=== PATIENT | female | born 1930 | race Caucasian/White ===

== ENCOUNTER → 2017-03-02 | Outpatient (CLI) | payer MEDICARE ==
[~2017-03-02] MED LIST: DICL1ADH5 TP; DICY10CA3 PO; LEVO50TA6 PO; METF500T4 PO; NYST1000 PO; OMEP20CA12 PO; TRAM50TA PO; VERA240C2 PO
--- NOTE | 2017-03-02 14:50 | DIREP ---
COMPARISON:[facility], CT, CT ABD/PELVIS W/O, 03/22/2016, 09:39 AM. INDICATIONS:RUQ AND EPIGASTRIC PAIN R10.11, R10.13 TECHNIQUE:After obtaining the patient's consent, CT images were created without and with non-ionic intravenous contrast material. Oral contrast was administered. FINDINGS: LIVER:Normal. BILIARY:Cholecystectomy clips. PANCREAS:Normal. SPLEEN:Normal. KIDNEYS:Multiple parapelvic cysts in each kidney as well as several cortical cyst. No evidence of renal/ureteral calculus or obstruction. URINARY TRACT:No renal stones. No hydronephrosis. ADRENALS:Normal. AORTA/VASCULAR:Scattered arterial calcifications. No aneurysm. RETROPERITONEUM:Normal. BOWEL/MESENTERY:There is no intestinal obstruction, free air, free fluid, or mesenteric inflammation. Multiple colonic diverticula without diverticulitis. The appendix is not visualized. No evidence of appendicitis. ABDOMINAL WALL:There is a small fat containing right inguinal hernia. BONES:Grade 2 spondylolisthesis at L5-S1. Multilevel degenerative disc and joint changes of the spine. Left proximal femur internal fixation hardware. Bilateral L5 pars defects. OTHER:Hysterectomy. CONCLUSION: 1. No acute pathology identified in the abdomen or pelvis. Previous cholecystectomy and hysterectomy. Colonic diverticulosis without diverticulitis. 2. Compared to the prior exam, again noted are bilateral parapelvic cysts with no evidence of hydronephrosis or renal/ureteral calculus. 3. Grade 2 spondylolisthesis at L5-S1 with bilateral L5 spondylolysis. 4. Please see the above discussion for details of other findings. Dictated by: Nayan Can M.D. on 03/02/2017 at 02:44 PM
== END | disposition home or self-care (01) ==
LOC: RAD 09:24
PROVIDERS: ATTEND Internal Medicine
DX: K57.30 Diverticulosis of large intestine without perforation or abscess without bleeding (principal); M43.06 Spondylolysis, lumbar region; Z90.49 Acquired absence of other specified parts of digestive tract; Z90.710 Acquired absence of both cervix and uterus
CPT/HCPCS: 74178; Q9967

== ENCOUNTER 2017-05-02 00:39 | Day surgery (SDC) | payer MEDICARE ==
[2017-04-30 13:54] VITALS: BP 155/74
[2017-04-30 15:26] LABS: BASOPHIL # 0.1 10^3/uL (0.0-0.1); BASOPHIL % 0.5 % (0.0-0.2); EOSINOPHIL # 0.5 10^3/uL (0.0-0.2); EOSINOPHIL % 5.4 % (0.0-5.0); HEMATOCRIT 38.6 % (36.0-46.0); HEMOGLOBIN 12.4 g/dL (12.0-15.0); LYMPHOCYTES # 2.4 10^3/uL (1.0-4.8); LYMPHOCYTES % 23.6 % (24.0-44.0); MEAN CELL HGB CONCENTRATION 32.1 g/dL (33-37); MEAN CORP VOLUME 83.9 fL (78-100); MEAN PLATELET VOLUME 10.4 fL (7.8-11.0); MONOCYTES % 10.1 % (5.0-12.0); NEUTROPHILS % 60.2 % (41.0-85.0); RED CELL DISTRIBUTION WIDTH 15.1 % (11.5-14.5)
[2017-04-30 15:39] LABS: CALCIUM 9.5 mg/dL (8.4-10.5); CARBON DIOXIDE 28.7 mmol/L (20.0-32)
[2017-05-02] VITALS (7 sets, daily range): BP systolic 130–165; BP diastolic 54–84
[~2017-05-02] VITALS: Ht 154.9 cm; Wt 82.1 kg
[~2017-05-02 00:39] MED LIST changes: +BUTA1CAP5 PO; +ESOM40CA PO; +MOVIPREP POWDER PACKET PO STA
[2017-05-02] MEDS ORDERED: NS 1000ML 1,000 ML ONE (05:20)
[2017-05-02] MEDS ORDERED: NS 1000ML 1,000 ML IV SCH (06:00)
[2017-05-02] MEDS ORDERED: XYLOCAINE ONE (06:28)
[2017-05-02] MEDS ORDERED: DIPRIVAN IV ONE ×2 (06:28→08:50)
[2017-05-02] MEDS ORDERED: WATER ONE (07:30)
--- NOTE | 2017-05-02 14:36 | OPH ---
PREOPERATIVE DIAGNOSIS: History of abdominal pain and need for screening. POSTOPERATIVE DIAGNOSES: 1. Gastritis. 2. Lesion in proximal stomach. 3. Diverticular disease of the colon. SURGEON: Vikas Pressley D.O. WEBSPHERE CONSULTANT: OR staff. ANESTHESIA: Total intravenous anesthesia by Willie Guadarrama CRNA. PROCEDURES PERFORMED: 1. Esophagogastroduodenoscopy with biopsy. 2. Long flexible colonoscopy to the cecum. SPECIMENS: 1. Gastric mucosa to Path. 2. Proximal gastric lesion biopsies to Path. ESTIMATED BLOOD LOSS: 3 mL. COUNTS: At the completion of the case, the counts were correct per OR staff. DESCRIPTION OF PROCEDURE: The patient is an 86-year-old female known from previous consult. Prior to the procedure, informed consent was obtained. At this time, she was taken to the operative suite and placed in supine position. After timeout was completed, she was repositioned in the left lateral recumbent position. With adequate sedation, esophagogastroduodenoscope was advanced transorally with pneumoinsufflation distally into the second portion of the duodenum. Once the duodenum was adequately visualized, the camera was slowly withdrawn with visualization of the duodenal bulb and the pylorus. Pylorus does show some gastritis, and biopsies are obtained. Retroflexion was performed. The cardia is essentially within normal limits. In the fundus, there is noted to be a lesion that is round and smooth like a lipoma; however, on attempts to biopsy it, it was noted to be fairly firm and minimally mobile like a submucosal lesion. Biopsies are obtained of the overlying mucosa and of the lesion as well. With hemostasis noted to be good, the camera is reduced. Stomach is decompressed. Scope is slowly withdrawn. Distal, mid and proximal esophagus are within normal limits. Both the cords are visualized within normal limits. Camera is removed. The procedure is discontinued. The patient remains in the OR. Timeout was previously completed. With adequate sedation, rectal exam is performed. There are no masses. There are some soft external hemorrhoids. Next, colonoscope was advanced transanally with pneumoinsufflation proximally. There is noted to be a fairly redundant and somewhat tortuous colon, but eventually, the cecum is reached. The quality of the prep is adequate. The cecum is irrigated and inspected. The camera is slowly withdrawn to facilitate visualization of the ascending colon, hepatic flexure, transverse colon, splenic flexure and descending colon. In the distal descending colon and sigmoid, there is noted to be some diverticular disease. Further distally through the sigmoid to the rectum, the visualized portion of colon and rectum shows no overt masses, polyps or AVMs. The camera is withdrawn to the level of 5 cm where it is retroflexed and reinserted. Anal verge is visualized within normal limits. Camera is reduced. Colon is decompressed. Colonoscope is removed. The patient tolerated these procedures well. There were no acute complications noted. Kurt Salcido/ TD: 05/02/2017 10:06 CC: Theodore May M.D. MTDIvette
== END 2017-05-02 09:24 | disposition home or self-care (01) | DRG 951 ==
LOC: SDC 00:39
PROVIDERS: ATTEND Surgery
DX: Z12.11 Encounter for screening for malignant neoplasm of colon (principal); K57.30 Diverticulosis of large intestine without perforation or abscess without bleeding; K58.9 Irritable bowel syndrome, unspecified; K64.4 Residual hemorrhoidal skin tags; K21.9 Gastro-esophageal reflux disease without esophagitis; K63.89 Other specified diseases of intestine; K44.9 Diaphragmatic hernia without obstruction or gangrene; K31.89 Other diseases of stomach and duodenum; K29.70 Gastritis, unspecified, without bleeding; E11.9 Type 2 diabetes mellitus without complications; E03.9 Hypothyroidism, unspecified; J45.909 Unspecified asthma, uncomplicated; E78.00 Pure hypercholesterolemia, unspecified; M19.90 Unspecified osteoarthritis, unspecified site; K76.0 Fatty (change of) liver, not elsewhere classified; E66.9 Obesity, unspecified; Z68.34 Body mass index [BMI] 34.0-34.9, adult; Z98.890 Other specified postprocedural states; Z80.3 Family history of malignant neoplasm of breast; Z90.710 Acquired absence of both cervix and uterus; Z82.49 Family history of ischemic heart disease and other diseases of the circulatory system; Z90.49 Acquired absence of other specified parts of digestive tract; Z82.0 Family history of epilepsy and other diseases of the nervous system; Z79.899 Other long term (current) drug therapy; Z88.1 Allergy status to other antibiotic agents; Z88.0 Allergy status to penicillin; Z88.2 Allergy status to sulfonamides; Z88.8 Allergy status to other drugs, medicaments and biological substances; Z85.028 Personal history of other malignant neoplasm of stomach
CPT/HCPCS: 36415; 43239; 45378; 80053; 85025; 85610; 85730; 88305; 93005; J3490 ×3; J7030; G0105

== ENCOUNTER 2018-01-09 22:51 | Emergency (ER) | payer MEDICARE ==
[~2018-01-09] VITALS: Ht 154.9 cm; Wt 78.0 kg
[~2018-01-09 22:51] MED LIST changes: +DICL1ADH15 TP; -DICL1ADH5 TP; -MOVIPREP POWDER PACKET PO STA
--- NOTE | 2018-01-09 22:58 | PCM.EKG ---
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
[2018-01-09 23:10] LABS: BASOPHIL % 0.3 % (0.0-0.2); EOSINOPHIL # 0.3 10^3/uL (0.0-0.2); EOSINOPHIL % 2.6 % (0.0-5.0); HEMOGLOBIN 11.9 g/dL (12.0-15.0); LYMPHOCYTES # 1.8 10^3/uL (1.0-4.8); LYMPHOCYTES % 17.7 % (24.0-44.0); MEAN CELL HGB 25.1 pg (26-34); MEAN CELL HGB CONCENTRATION 30.9 g/dL (33-37); MEAN CORP VOLUME 81.2 fL (78-100); MEAN PLATELET VOLUME 9.5 fL (7.8-11.0); MONOCYTES # 0.9 10^3/uL (0.3-0.8); MONOCYTES % 8.4 % (5.0-12.0); NEUTROPHIL # 7.3 10^3/uL (1.8-7.7); NEUTROPHILS % 70.7 % (41.0-85.0); RED CELL DISTRIBUTION WIDTH 16.6 % (11.5-14.5); WHITE BLOOD CELL 10.3 10^3/uL (4.5-11.0)
[2018-01-09] MEDS ORDERED: ASPIRIN ONE (23:13)
[2018-01-09] MEDS ORDERED: ASPIRIN PO STA (23:15)
[2018-01-09] MEDS ORDERED: NITROSTAT SL STA (23:16)
[2018-01-09 23:37] LABS: ALANINE AMINOTRANSFERASE(ML) 14 U/L (12-78); ALKALINE PHOSPHATASE 61 U/L (50-136); ASPARTATE AMINO TRANSFERASE 11 U/L (0-35); CALCIUM 8.9 mg/dL (8.4-10.5); CARBON DIOXIDE 27.3 mmol/L (20.0-32); GLUCOSE 124 mg/dL (70-110)
--- NOTE | 2018-01-09 23:58 | DIREP ---
PROCEDURE:CHEST 1 VIEW COMPARISON:[facility], CR, XRAY CHEST 2 VWS, 12/19/2017, 12:02 PM. INDICATIONS:chest pain FINDINGS: LUNGS/PLEURA:No significant pulmonary parenchymal abnormalities. No effusions. VASCULATURE:Normal. Unremarkable pulmonary vasculature. CARDIAC:Normal. No cardiac silhouette abnormality or cardiomegaly. MEDIASTINUM:Atherosclerotic arch BONES:Bilateral acromioclavicular osteoarthritis OTHER:Negative. CONCLUSION:No acute disease. Dictated by: Rakesh Guerrero DO on 01/09/2018 at 11:57 PM
[2018-01-10] VITALS (9 sets, daily range): BP systolic 111–153; BP diastolic 52–70
--- NOTE | 2018-01-10 00:29 | NUR ---
BACK FROM CT PATIENT BACK FROM CT, SON AT BEDSIDE. NO NEEDS VOICED BY PATIENT OR SON
--- NOTE | 2018-01-10 01:01 | DIREP ---
This report includes an Addendum and supersedes previous reports for this exam. PROCEDURE:CTA PE CHEST W/PELVIS & LEGS TECHNIQUE:Following the intravenous administration of contrast material, axial cuts were obtained through the chest. Multiplanar / 3-D reconstructions are provided. Satisfactory pulmonary arterial contrast opacification was achieved. Delayed images through the pelvis and upper legs were acquired for a CT venogram. The images were viewed at lung and soft tissue settings. . COMPARISON:None. INDICATIONS:elevated D-Dimer and Shortness of breath FINDINGS: PULMONARY ARTERIES:Patent. LUNGS:Calcified granuloma incidentally noted within the right upper lobe. No significant pulmonary parenchymal abnormalities. CARDIAC:Normal size heart and normal pulmonary vascularity. THYROID:Normal. THORACIC AORTA:Mild atherosclerotic plaque without aneurysm. MEDIASTINUM:Normal. PLEURA:No effusion. No mass. BONES:Advanced degenerative joint disease of the lower lumbar spine and bilateral shoulder joint. OTHER:Advanced lower lumbar degenerative joint disease. Limited examination of the lower extremity veins due to arterial timing of the contrast bolus. No secondary evidence of deep venous thrombosis. Right thyroid nodule CONCLUSION: 1. No visualized deep venous thrombosis or acute cardiopulmonary process 2. Right thyroid nodule incidentally noted. Recommend dedicated follow-up on a nonemergent basis. Dictated by: Rakesh Guerrero DO on 01/10/2018 at 00:51 AM ECTION technique coy [id number] ADDENDUM: Add the following to the body of the report. The pelvis is negative. The remainder of report remains the same as does the overall impression. Dictated by: Rakesh Guerrero DO on 01/23/2018 at 02:22 PM
--- NOTE | 2018-01-10 01:19 | NUR ---
REPEAT LABS EDP STATES WE WILL REPEAT CARDIACS AND KEEP PATIENT IN ED TILL MORNING
[2018-01-10] MEDS ORDERED: SUBLIMAZE ONE (01:20)
[2018-01-10] MEDS ORDERED: ULTRAM PO STA (01:24)
--- NOTE | 2018-01-10 01:24 | ER.PDOC ---
General Chief Complaint: Chest Pain-Cardiac Nature Stated Complaint: CHEST PAIN Time seen by MD: 00:01 Source: patient, family Exam Limitations: no limitations History of Present Illness Initial Comments Patient with pressure, dull pain in chest that radiates to left arm. This started at about 8:30 pm while she was at [employer]. It was getting worse at home so she comes into ED. They have a strong family history of CAD, and she has DM2. Timing/Duration: 4-6 hours Severity/Quality: moderate Radiation: arms Activities at Onset: activity/exertion (Mild) Prior CP/Workup: no Prior Cardiac Workup Nitro Today/Relief: No Nitro Taken Today Aspirin Today: 81 mg x 3 Associated Symptoms: shortness of breath (Mild) Allergies: Coded Allergies: Penicillins (Verified Allergy, Unknown, RED BUMPS, 04/30/17) Sulfa (Sulfonamide Antibiotics) (Verified Allergy, Unknown, RED BUMPS, ) acetaminophen (Verified Allergy, Unknown, 01/09/18) cephradine (Verified Allergy, Unknown, 04/30/17) fentanyl (Verified Allergy, Unknown, 04/30/17) gabapentin (Verified Allergy, Unknown, "I BREAK OUT LIKE I HAVE BLOOD UNDER THE SKIN", 04/30/17) hydrocodone (Verified Allergy, Unknown, 01/09/18) iron (Verified Allergy, Unknown, 04/30/17) lansoprazole (Verified Allergy, Unknown, 04/30/17) morphine (Verified Allergy, Unknown, 04/30/17) oxycodone (Verified Allergy, Unknown, 04/30/17) oxytetracycline (Verified Allergy, Unknown, Swelling, 04/30/17) pantoprazole (Verified Allergy, Unknown, 04/30/17) propoxyphene (Verified Allergy, Unknown, 01/09/18) pseudoephedrine (Verified Allergy, Unknown, RED BUMPS, 04/30/17) raloxifene (Verified Allergy, Unknown, 04/30/17) tramadol (Verified Allergy, Unknown, 04/30/17) Home Meds Reported Medications Esomeprazole Magnesium (NEXIUM) 40 Mg Capsule., 1 CAP PO DAILY, #30 CAP 5 Refills 04/30/17 Butalbital/Aspirin/Caffeine ([id number] CAP) 1 Each Capsule, 1 EACH PO BID Y for HEADACHE, CAPSULE 04/30/17 Dicyclomine Hcl (DICYCLOMINE HCL) 10 Mg Capsule, 1 CAP PO TID, #90 CAP 11 Refills 09/27/14 Tramadol Hcl (TRAMADOL HCL) 50 Mg Tablet, 50 MG PO Y for PAIN, TABLET 09/27/14 Nystatin (NYSTATIN) 100,000 Unit/1 Ml Oral.susp, 5 MILLILITER PO QID Y for RASH , #200 MILLILITER 09/27/14 Verapamil Hcl (VERAPAMIL ER) 240 Mg Cap24h.pel, 1 CAP PO DAILY, #30 CAP 5 Refills 09/27/14 Metformin Hcl (METFORMIN HCL) 500 Mg Tablet, 750 MG PO DAILY, #60 TAB 3 Refills 09/27/14 Levothyroxine Sodium (LEVOTHYROXINE SODIUM) 50 Mcg Tablet, 1 TAB PO DAILY, #30 TAB 5 Refills 09/27/14 Past Medical History Medical History: diabetes, hypertension, thyroid disease Surgical History: appendectomy, back, cholecystectomy, hip, hysterectomy LMP (females 10-50): hysterectomy Family History Significant Family History: heart disease Social History Smoking: non-smoker Alcohol Use: none Drug Use: none Reviewed Nursing Reviewed: Vital Signs, Abn. Noted, Nursing Assessment Constitutional: no symptoms reported EENTM: no symptoms reported Respiratory: shortness of breath Cardiovascular: chest pain Gastrointestinal: no symptoms reported Genitourinary: no symptoms reported Musculoskeletal: no symptoms reported Skin: no symptoms reported Psychiatric/Neurological: no symptoms reported Endocrine: no symptoms reported Hematologic/Lymphatic: no symptoms reported All Other Systems: Reviewed and Negative Physical Exam General Appearance: No Apparent Distress, WD/WN HEENT: PERRL/EOMI, Normal ENT Inspection, TMs Normal, Pharynx Normal Neck: Non-Tender, Full Range of Motion, Supple, Normal Inspection Respiratory: chest non-tender, lungs clear, normal breath sounds, no respiratory distress, no accessory muscle use Cardiovascular: Normal Peripheral Pulses, Regular Rate, Rhythm, No Edema, No Gallop, No JVD, No Murmur Gastrointestinal: Normal Bowel Sounds, No Organomegaly, No Pulsatile Mass, Non Tender, Soft Rectal: Normal Exam Extremities: Normal Range of Motion, Non-Tender, Normal Inspection, No Pedal Edema, No Calf Tenderness, Normal Capillary Refill 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8-11.0) Neutrophils (%) (Auto) 70.7 % (41.0-85.0) Lymphocytes (%) (Auto) 17.7 % (24.0-44.0) Monocytes (%) (Auto) 8.4 % (5.0-12.0) Neutrophils # (Auto) 7.3 10^3/uL (1.8-7.7) Lymphocytes # (Auto) 1.8 10^3/uL (1.0-4.8) Monocytes # (Auto) 0.9 10^3/uL (0.3-0.8) Absolute Immature Granulocyte (auto 0.03 10^3 u/L (0-2) Eosinophils % 2.6 % (0.0-5.0) Basophils % 0.3 % (0.0-0.2) Basophils # 0.0 10^3/uL (0.0-0.1) Eosinophil Count 0.3 10^3/uL (0.0-0.2) Prothrombin Time 9.9 SEC (9.8-11.9) Prothrombin Time INR (Non-Therap) 1.0 Activated Partial Thromboplast Time 22.5 SEC (24.67-30.72) D-Dimer 0.66 mg/L (0.19-0.49) Sodium Level 140 mmol/L (132-145) Potassium Level 4.0 mmol/L (3.6-5.2) Chloride Level 102.0 mmol/L (96-109) Carbon Dioxide Level 27.3 mmol/L (20.0-32) Anion Gap 14.7 Blood Urea Nitrogen 22 mg/dL (7-18) Creatinine 0.99 mg/dL (0.59-1.40) Estimated GFR () 64.5 (>/=60) BUN/Creatinine Ratio 22.0 Glucose Level 124 mg/dL (70-110) Calcium Level 8.9 mg/dL (8.4-10.5) Total Bilirubin 0.1 mg/dL (0.2-1.0) Aspartate Amino Transf (AST/SGOT) 11 U/L (0-35) Alanine Aminotransferase (ALT/SGPT) 14 U/L (12-78) Alkaline Phosphatase 61 U/L (50-136) Total Creatine Kinase 56 U/L (26-192) Creatine Kinase MB 0.7 ng/mL (0.5-3.6) Troponin I < 0.02 ng/mL (0.00-0.05) Pro-B-Type Natriuretic Peptide 89 pg/mL (0-450) Total Protein 7.4 g/dL (6.4-8.2) Albumin 3.4 g/dL (3.4-5.0) Globulin 4.0 Percent Immature Gran (Cell Imm) 0.30 % (0.00-0.50) Administered Medications Medications (Trade) Dose Ordered Sig/Aguilar Route PRN Reason Start Time Stop Time Status Last Admin Dose Admin Aspirin (Aspirin) 81 mg STAT STAT PO 01/09/18 23:15 01/09/18 23:16 DC 01/09/18 23:20 Nitroglycerin (Nitrostat) 0.4 mg STAT STAT SL 01/09/18 23:16 01/09/18 23:17 DC 01/09/18 23:20 Progress Progress 1:23 Pain now much improved, Now 10/24. Patient pain free, repeat Cardiac Enzymes and EKG Normal. Will discharge to home EKG/XRAY/CT/US EKG: NSR XRAY: chest (NAD) CT Comments: Normal, No PE or DVT #2 EKG: NSR Departure Time of Disposition: 06:43 Disposition: 01 HOME, SELF-CARE Impression: Primary Impression: Chest pain Condition: Stable Patient Instructions: Chest Pain (Nonspecific) Referrals: DREW SCHAFER MD (PCP) PRIMARY CARE PROVIDER Additional Instructions: Follow up with PCP for continued work up of Chest Pain. No evidence of Cardiac disease, further evaluation warranted. Duration or Time Spent with Pa: 1.5 hr Problem Qualifiers Primary Impression: Chest pain Chest pain type: other chest pain Qualified Codes: R07.89 - Other chest pain ROSALIE LANZA DO Jan 10, 2018 01:24
[2018-01-10] MEDS ORDERED: ULTRAM ONE (01:28)
--- NOTE | 2018-01-10 02:37 | NUR ---
UPDATE PATIENT RESTING WITH EYES CLOSED, EQUAL CHEST RISE AND FALL. VITALS STABLE
--- NOTE | 2018-01-10 02:52 | NUR ---
TO RESTROOM PATIENT AMBULATED TO RESTROOM
--- NOTE | 2018-01-10 04:54 | NUR ---
TO RESTROOM PATIENT AMBULATED TO RESTROOM,NO OTHER NEEDS VOICED BY PATIENT
--- NOTE | 2018-01-10 05:50 | NUR ---
LAB AND XRAY IN ROOM FOR BLOOD DRAW AND EKG
--- NOTE | 2018-01-10 05:53 | PCM.EKG ---
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
--- NOTE | 2018-01-10 05:55 | NUR ---
TO RESTROOM PATIENT AMBULATED TO RESTROOM, NO NEEDS VOICED BY PATIENT
== END 2018-01-10 06:50 | disposition home or self-care (01) ==
LOC: ER 22:51
DX: R07.89 Other chest pain (principal); S93.402A Sprain of unspecified ligament of left ankle, initial encounter; S80.212A Abrasion, left knee, initial encounter; R06.02 Shortness of breath; E07.9 Disorder of thyroid, unspecified; E11.9 Type 2 diabetes mellitus without complications; I10 Essential (primary) hypertension; Z79.82 Long term (current) use of aspirin; Z82.49 Family history of ischemic heart disease and other diseases of the circulatory system; Z88.0 Allergy status to penicillin; Z88.2 Allergy status to sulfonamides; Z88.5 Allergy status to narcotic agent; Z90.49 Acquired absence of other specified parts of digestive tract; Z90.710 Acquired absence of both cervix and uterus; Z79.84 Long term (current) use of oral hypoglycemic drugs; Z79.899 Other long term (current) drug therapy; W19.XXXA Unspecified fall, initial encounter; Y93.89 Activity, other specified; Y92.89 Other specified places as the place of occurrence of the external cause; Y99.8 Other external cause status
CPT/HCPCS: 36415; 71045; 71275; 73701; 73706; 80053; 82550; 82553; 83880; 84484; 85025; 85379; 85610; 85730; 93005; 99284; 99285; J3010; 73562-LT; 73610-LT; Q9965

== ENCOUNTER 2018-01-10 07:36 | Emergency (ER) | payer MEDICARE, OTHER ==
[~2018-01-10] VITALS: Ht 154.9 cm; Wt 78.0 kg
[2018-01-10 07:53] VITALS: BP 148/75
--- NOTE | 2018-01-10 08:25 | DIREP ---
PROCEDURE:XRAY KNEE 3 VIEWS-LT COMPARISON:None. INDICATIONS:FALL FINDINGS: BONES:Two views of the left knee. No acute fracture is seen in the distal left femur, the patella or the proximal left tibia and the fibula. No fracture of the tibial plateau is seen. The lateral view is slightly obliques, but no large joint effusion is seen in the suprapatellar bursa. No loose bodies are seen. Ossification at the site of attachment of the suprapatellar tendon. JOINTS:Normal. SOFT TISSUES:Normal. OTHER:No additional findings. CONCLUSION:No acute fracture seen in the three views of the left knee. Dictated by: Charles Stewart MD on 01/10/2018 at 08:23 AM
--- NOTE | 2018-01-10 08:26 | DIREP ---
PROCEDURE:XRAY ANKLE MIN 3VWS-LT COMPARISON:None. INDICATIONS:FALL, LEFT ANKLE PAIN FINDINGS: BONES:Three views of the left ankle. No acute fracture is seen in the medial, lateral or the posterior malleolus. No joint widening is seen. Ossification at the site of attachment of the Achilles tendon. No fracture of the calcaneus or of the base of the 5th metatarsal is seen on the lateral view. JOINTS:Normal. SOFT TISSUES:Normal. OTHER:No additional findings. CONCLUSION:Negative three views of the left ankle. Dictated by: Charles Stewart MD on 01/10/2018 at 08:25 AM
[2018-01-10] MEDS ORDERED: TRIPLE ANTIBIOTIC OINTMENT TP ONE (08:27)
--- NOTE | 2018-01-10 08:33 | ER.PDOC ---
General Chief Complaint: Extremities Stated Complaint: FALL;KNEE PAIN Time seen by MD: 07:55 Source: patient Exam Limitations: no limitations History of Present Illness Initial Comments Pt was seen today at ER for chest pain and when she was discharged, she fell landing on her knee and ankle Recent Injury: No Allergies: Coded Allergies: Penicillins (Verified Allergy, Unknown, RED BUMPS, 04/30/17) Sulfa (Sulfonamide Antibiotics) (Verified Allergy, Unknown, RED BUMPS, ) acetaminophen (Verified Allergy, Unknown, 01/09/18) cephradine (Verified Allergy, Unknown, 04/30/17) fentanyl (Verified Allergy, Unknown, 04/30/17) gabapentin (Verified Allergy, Unknown, "I BREAK OUT LIKE I HAVE BLOOD UNDER THE SKIN", 04/30/17) hydrocodone (Verified Allergy, Unknown, 01/09/18) iron (Verified Allergy, Unknown, 04/30/17) lansoprazole (Verified Allergy, Unknown, 04/30/17) morphine (Verified Allergy, Unknown, 04/30/17) oxycodone (Verified Allergy, Unknown, 04/30/17) oxytetracycline (Verified Allergy, Unknown, Swelling, 04/30/17) pantoprazole (Verified Allergy, Unknown, 04/30/17) propoxyphene (Verified Allergy, Unknown, 01/09/18) pseudoephedrine (Verified Allergy, Unknown, RED BUMPS, 04/30/17) raloxifene (Verified Allergy, Unknown, 04/30/17) tramadol (Verified Allergy, Unknown, 04/30/17) Home Meds Reported Medications Esomeprazole Magnesium (NEXIUM) 40 Mg Capsule.dr, 1 CAP PO DAILY, #30 CAP 5 Refills 04/30/17 Butalbital/Aspirin/Caffeine ([id number] CAP) 1 Each Capsule, 1 EACH PO BID Y for HEADACHE, CAPSULE 04/30/17 Dicyclomine Hcl (DICYCLOMINE HCL) 10 Mg Capsule, 1 CAP PO TID, #90 CAP 11 Refills 09/27/14 Tramadol Hcl (TRAMADOL HCL) 50 Mg Tablet, 50 MG PO Y for PAIN, TABLET 09/27/14 Nystatin (NYSTATIN) 100,000 Unit/1 Ml Oral.susp, 5 MILLILITER PO QID Y for RASH , #200 MILLILITER 09/27/14 Verapamil Hcl (VERAPAMIL ER) 240 Mg Cap24h.pel, 1 CAP PO DAILY, #30 CAP 5 Refills 09/27/14 Metformin Hcl (METFORMIN HCL) 500 Mg Tablet, 750 MG PO DAILY, #60 TAB 3 Refills 09/27/14 Levothyroxine Sodium (LEVOTHYROXINE SODIUM) 50 Mcg Tablet, 1 TAB PO DAILY, #30 TAB 5 Refills 09/27/14 Past Medical History Medical History: diabetes Surgical History: appendectomy, cholecystectomy, hip, hysterectomy LMP (females 10-50): hysterectomy Social History Smoking: non-smoker Alcohol Use: none Drug Use: none Review of Systems Constitutional: see HPI Musculoskeletal: see HPI All Other Systems: Reviewed and Negative Physical Exam General Appearance: Alert Lower Extremity: tenderness (lateral left ankle and and antrior knee with knee abrasion ) Vascular: no vascular compromise Neuro/Psych: sensation nml Skin: color nml Back/Neck: nml inspection EENT: eyes inspection nml Respiratory: no resp distress CVS: reg rate & rhythm Abdomen: non-tender Departure Time of Disposition: 08:37 Disposition: 01 HOME, SELF-CARE Impression: Primary Impression: Ankle sprain Qualified Codes: S93.402A - Sprain of unspecified ligament of left ankle, initial encounter Additional Impression: Knee abrasion Qualified Codes: S80.212A - Abrasion, left knee, initial encounter Condition: Stable Referrals: DREW SCHAFER MD (PCP) PRIMARY CARE PROVIDER Duration or Time Spent with Pa: 10 LEANNA REEVES MD Jan 10, 2018 08:33
[2018-01-10 08:39] VITALS: BP 121/61
[2018-01-10 08:40] VITALS: BP 121/61
== END 2018-01-10 08:41 | disposition home or self-care (01) ==
LOC: ER 07:36
DX: S93.402A Sprain of unspecified ligament of left ankle, initial encounter (principal); S80.212A Abrasion, left knee, initial encounter; E11.9 Type 2 diabetes mellitus without complications; Z79.82 Long term (current) use of aspirin; Z88.0 Allergy status to penicillin; Z88.2 Allergy status to sulfonamides; Z88.5 Allergy status to narcotic agent; Z90.49 Acquired absence of other specified parts of digestive tract; Z90.710 Acquired absence of both cervix and uterus; Z79.899 Other long term (current) drug therapy; Z88.8 Allergy status to other drugs, medicaments and biological substances; W19.XXXA Unspecified fall, initial encounter; Y93.89 Activity, other specified; Y92.89 Other specified places as the place of occurrence of the external cause; Y99.8 Other external cause status
CPT/HCPCS: 99284; 73562-LT; 73610-LT

== ENCOUNTER → 2018-05-03 | Outpatient (CLI) | payer MEDICARE ==
[~2018-05-03] MED LIST changes: -METF500T4 PO; +METF500T5 PO
--- NOTE | 2018-05-03 11:20 | DIREP ---
PROCEDURE:CT CHEST W/O COMPARISON:None. INDICATIONS:R07.9 CHEST PAIN x 1 year, lower rt side TECHNIQUE:Helical sections through the chest were performed from the lung apices through the diaphragms without IV contrast. Sagittal and coronal reconstructions are obtained from source images. FINDINGS: LUNGS:There are 2 noncalcified 3 mm right middle lobe pulmonary nodules, image 25 and 31, series 5. No visible pulmonary disease. PLEURA:Normal. No mass or effusion. CARDIAC:Borderline cardiomegaly. No pericardial thickening, , effusion or significant calcification. MEDIASTINUM:Normal. No mass or adenopathy. KIM:Normal. No mass or adenopathy. AORTA:Aortic atherosclerotic calcifications. CHEST WALL:Breasts are partially excluded from view. No mass or axillary adenopathy. LIMITED ABDOMEN:Cholecystectomy clips. Remainder of upper abdomen unremarkable. BONES:Thoracic spondylosis. No bony lesion or fracture. OTHER:Negative. CONCLUSION: 1. Tiny noncalcified sub 4 mm pulmonary nodules. No follow-up needed if the patient is low risk (no history of neoplasm or tobacco use), optional CT thorax recommended in 12 months if the patient is high risk (history of neoplasm or tobacco use)to assess stability of nodule(s). 2. Borderline cardiomegaly. 3. Cholecystectomy. 4. No CT abnormality seen to account for patient's lower right-sided chest pain. Dictated by: Kobe Carver M.D. on 05/03/2018 at 11:09 AM
== END | disposition home or self-care (01) ==
LOC: RAD 10:13
PROVIDERS: ATTEND Internal Medicine
DX: M47.894 Other spondylosis, thoracic region (principal); Z90.49 Acquired absence of other specified parts of digestive tract
CPT/HCPCS: 71250

== ENCOUNTER 2018-12-29 11:41 | Inpatient (IN) | payer MEDICARE ==
[~2018-12-29] VITALS: Ht 154.9 cm; Wt 73.0 kg
[2018-12-29] VITALS (9 sets, daily range): BP systolic 104–158; BP diastolic 50–85
[~2018-12-29 11:41] MED LIST changes: +METF500T17 PO; -METF500T5 PO
--- NOTE | 2018-12-29 11:45 | NUR ---
TRIAGE PT STATES CHEST PAIN STARTED WHILE SHE WAS SITTING IN PENTECOSTAL STERNAL THAT GOES TO BACK. NO N/V, DIAPHORESIS, SLIGHT SOB NOTED. BSM ON, REPORTED TO DR. JENSEN.
--- NOTE | 2018-12-29 11:55 | PCM.EKG ---
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
[2018-12-29] MEDS ORDERED: ASPIRIN ONE (11:58)
[2018-12-29] MEDS ORDERED: ASPIRIN PO STA (11:59)
[2018-12-29] MEDS ORDERED: NITROSTAT SL PRN (12:00)
--- NOTE | 2018-12-29 12:01 | ER.PDOC ---
General Chief Complaint: Chest Pain-Cardiac Nature Stated Complaint: CP,SOB Time seen by MD: 12:00 Source: patient Exam Limitations: no limitations History of Present Illness Initial Comments Chest pain Timing/Duration: 1-3 hours Severity/Quality: moderate, sharp Radiation: back Activities at Onset: rest Prior CP/Workup: No Prior Chest Pain Nitro Today/Relief: 0.4 mg x 1 Aspirin Today: 325 mg x 1, Provided By ED Associated Symptoms: shortness of breath Allergies: Coded Allergies: Penicillins (Verified Allergy, Unknown, RED BUMPS, 04/30/17) Sulfa (Sulfonamide Antibiotics) (Verified Allergy, Unknown, RED BUMPS, ) acetaminophen (Verified Allergy, Unknown, 01/09/18) cephradine (Verified Allergy, Unknown, 04/30/17) fentanyl (Verified Allergy, Unknown, 04/30/17) gabapentin (Verified Allergy, Unknown, "I BREAK OUT LIKE I HAVE BLOOD UNDER THE SKIN", 04/30/17) hydrocodone (Verified Allergy, Unknown, 01/09/18) iron (Verified Allergy, Unknown, 04/30/17) lansoprazole (Verified Allergy, Unknown, 04/30/17) morphine (Verified Allergy, Unknown, 04/30/17) oxycodone (Verified Allergy, Unknown, 04/30/17) oxytetracycline (Verified Allergy, Unknown, Swelling, 04/30/17) pantoprazole (Verified Allergy, Unknown, 04/30/17) propoxyphene (Verified Allergy, Unknown, 01/09/18) pseudoephedrine (Verified Allergy, Unknown, RED BUMPS, 04/30/17) raloxifene (Verified Allergy, Unknown, 04/30/17) tramadol (Verified Allergy, Unknown, 04/30/17) Home Meds Reported Medications Esomeprazole Magnesium (NEXIUM) 40 Mg Capsule.dr, 1 CAP PO DAILY, #30 CAP 5 Refills 04/30/17 Butalbital/Aspirin/Caffeine ([id number] CAP) 1 Each Capsule, 1 EACH PO BID PRN for HEADACHE, CAPSULE 04/30/17 Dicyclomine Hcl (DICYCLOMINE HCL) 10 Mg Capsule, 1 CAP PO TID, #90 CAP 11 Refills 09/27/14 Tramadol Hcl (TRAMADOL HCL) 50 Mg Tablet, 50 MG PO PRN for PAIN, TABLET 09/27/14 Nystatin (NYSTATIN) 100,000 Unit/1 Ml Oral.susp, 5 MILLILITER PO QID PRN for RASH, #200 MILLILITER 09/27/14 Verapamil Hcl (VERAPAMIL ER) 240 Mg Cap24h.pel, 1 CAP PO DAILY, #30 CAP 5 Refills 09/27/14 Metformin Hcl (METFORMIN HCL) 500 Mg Tablet, 750 MG PO DAILY, #60 TAB 3 Refills 09/27/14 Levothyroxine Sodium (LEVOTHYROXINE SODIUM) 50 Mcg Tablet, 1 TAB PO DAILY, #30 TAB 5 Refills 09/27/14 Past Medical History Medical History: asthma, cardiac problems, diabetes, GERD, hypertension, thyroid disease Surgical History: appendectomy, hysterectomy LMP (females 10-50): hysterectomy Social History Smoking: non-smoker Alcohol Use: none Drug Use: none Constitutional: no symptoms reported EENTM: no symptoms reported Respiratory: see HPI Cardiovascular: see HPI Gastrointestinal: no symptoms reported All Other Systems: Reviewed and Negative Physical Exam General Appearance: No Apparent Distress, WD/WN Neck: Non-Tender, Full Range of Motion, Supple, Normal Inspection Respiratory: chest non-tender, lungs clear, normal breath sounds, no respiratory distress, no accessory muscle use Cardiovascular: Normal Peripheral Pulses, Regular Rate, Rhythm, No Edema, No Gallop, No JVD, No Murmur Gastrointestinal: Normal Bowel Sounds, No Organomegaly, No Pulsatile Mass, Non Tender, Soft Extremities: Normal Range of Motion, Non-Tender, Normal Inspection, No Pedal Edema, No Calf Tenderness, Normal Capillary Refill 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 (12/29/18 11:48) D-Dimer (12/29/18 11:48) Xr Chest 1v (12/29/18 11:48) Ekg-Routine (12/29/18 11:48) Aspirin (Aspirin) (12/29/18 11:58) Aspirin (Aspirin) (12/29/18 11:59) Nitroglycerin (Nitrostat) (12/29/18 12:00) Vital Signs Date Time Temp Pulse Resp B/P (MAP) Pulse Ox O2 Delivery O2 Flow Rate FiO2 12/29/18 11:52 98.1 70 24 145/85 (105) 97 Room Air 98.1 12/29/18 11:45 98.1 24 97 Room Air 98.[address] Sutheralnd does not want me to give Lovenox at this time. He will evaluate patient and decide. EKG/XRAY/CT/US EKG Comments: Normal XRAY: chest (No active ) Course Duration or Total Time Spent w: 10 Vitals & review Data Vital Sign - Last 24 Hours 12/29/18 12/29/18 11:45 11:52 Temp 98.1 98.1 98.1 98.1 Pulse 70 Resp 24 24 B/P (MAP) 145/85 (105) Pulse Ox 97 97 O2 Delivery Room Air Room Air Sepsis Infection Criteria Pres: None O2 Sat by Pulse Oximetry: 97 Departure Time of Disposition: 12:38 Disposition: 01 HOME, SELF-CARE Impression: Primary Impression: Chest pain Condition: Stable Referrals: DREW SCHAFER MD (PCP) PRIMARY CARE PROVIDER Comments Admitted to Dr. Sutherland Duration or Time Spent with Pa: 60 mins Problem Qualifiers Primary Impression: Chest pain Chest pain type: unspecified Qualified Codes: R07.9 - Chest pain, unspecified MALINDA JENSEN MD Dec 29, 2018 12:01
[2018-12-29 12:02] LABS: BASOPHIL % 0.5 % (0.0-0.2); EOSINOPHIL # 0.5 10^3/uL (0.0-0.2); EOSINOPHIL % 6.2 % (0.0-5.0); HEMOGLOBIN 13.5 g/dL (12.0-15.0); LYMPHOCYTES # 1.6 10^3/uL (1.0-4.8); LYMPHOCYTES % 18.9 % (24.0-44.0); MEAN CELL HGB 26.7 pg (26-34); MEAN CELL HGB CONCENTRATION 32.4 g/dL (33-37); MEAN CORP VOLUME 82.6 fL (78-100); MONOCYTES # 0.7 10^3/uL (0.3-0.8); MONOCYTES % 8.7 % (5.0-12.0); NEUTROPHIL # 5.3 10^3/uL (1.8-7.7); NEUTROPHILS % 65.3 % (41.0-85.0); RED CELL DISTRIBUTION WIDTH 17.2 % (11.5-14.5); WHITE BLOOD CELL 8.2 10^3/uL (4.5-11.0)
--- NOTE | 2018-12-29 12:16 | DIREP ---
PROCEDURE:CHEST 1 VIEW COMPARISON:[facility], CR, XRAY CHEST SINGLE VW, 01/09/2018, 11:06 PM. INDICATIONS:Chest pain and SOB FINDINGS: LUNGS/PLEURA:No significant pulmonary parenchymal abnormalities. No effusions. Lungs are well-expanded and clear. No pneumonia, heart failure or effusions are seen. No pneumothorax, pneumomediastinum, aortic aneurysm or mediastinal widening is seen. VASCULATURE:Normal. Unremarkable pulmonary vasculature. CARDIAC:Normal. No cardiac silhouette abnormality or cardiomegaly. Aorta is tortuous. EKG leads identified. MEDIASTINUM:Normal. No visible mass or adenopathy. BONES:Normal. No fracture or visible bony lesion. OTHER:Negative. CONCLUSION:No active disease. Mildly tortuous aorta. Dictated by: Charles Stewart MD on 12/29/2018 at 12:14 PM
[2018-12-29 12:25] LABS: ALANINE AMINOTRANSFERASE(ML) 23 U/L (12-78); ALKALINE PHOSPHATASE 68 U/L (50-136); ASPARTATE AMINO TRANSFERASE 19 U/L (0-35); CARBON DIOXIDE 27.6 mmol/L (20.0-32); GLUCOSE 106 mg/dL (70-110)
--- NOTE | 2018-12-29 12:28 | NUR ---
NIMCOIMER CRITICAL RESULT OF 0.61 CALLED IN FROM LAB. REPORTED TO DR. JENSEN.
--- NOTE | 2018-12-29 12:36 | NUR ---
HOSPITALIST DR JENSEN ON PHONE WITH DR. MAYORGA.
[2018-12-29] MEDS ORDERED: NS 1000ML 1,000 ML IV STA (12:42)
[2018-12-29] MEDS ORDERED: TORADOL IV STA (12:46)
[2018-12-29] MEDS ORDERED: NS 1000ML 1,000 ML ONE (12:50)
[2018-12-29] MEDS ORDERED: TORADOL ONE (12:51)
--- NOTE | 2018-12-29 13:15 | NUR ---
ARRIVAL PATIENT ARRIVED ON MED-SURG UNIT AT THIS TIME. RECEIVED REPORT, ASSUMED CARE FOR PATIENT AT THIS TIME.
[2018-12-29] MEDS ORDERED: DEXTROSE 50%-WATER SYRINGE IV PRN (17:00)
[2018-12-29] MEDS: HUMULIN R SQ SCH ×2 (17:09→21:00)
--- NOTE | 2018-12-29 17:54 | PCM.HP ---
HISTORY & PHYSICAL HISTORY & PHYSICAL DATE OF ADMISSION: CHIEF COMPLAINT: 88 yo female with DM, HTN, and strong FHx CAD,, comes in with 3 days of intermittent substernal chest pain radiating to back. EKG and Enzymes (-) thus far. Admit for R/O ACS and have evaluation by Dr. Stone. H&P #[id number] HISTORY OF PRESENT ILLNESS: ALLERGIES: CURRENT MEDICATIONS: PAST MEDICAL HISTORY: SOCIAL HISTORY: FAMILY HISTORY: REVIEW OF SYSTEMS: PHYSICAL EXAMINATION: GENERAL: VITAL SIGNS: HEENT: NECK: LUNGS: HEART: ABDOMEN: EXTREMITIES: NEUROLOGIC: LABORATORY DATA: IMPRESSION: CARE PLAN: ENMA MAYORGA MD Dec 29, 2018 17:54
--- NOTE | 2018-12-29 19:24 | HPH ---
ADMIT DATE: 12/29/2018 CHIEF COMPLAINT: Chest pain. HISTORY OF PRESENT ILLNESS: This is an 88-year-old female with a history of hypertension and diabetes who presents to the Emergency Department earlier this afternoon with complaints of chest pain. She states her pain started 4 days ago when it developed suddenly in the middle of her chest and radiated to her mid back. The pain at that time only lasted for several minutes and then abated. Her pain recurred several more times that afternoon and early on morning but then rescinded. She was feeling better over the last 24-36 hours until she was at [employer] today when she was getting ready to leave [employer] and developed a sudden onset of pain near the bottom of her sternum. She described it as a squeezing pain and there was some radiation to the back. This pain lasted approximately 30-45 minutes and she rated it as 7/10. This is what necessitated her visit to the Emergency Department. She did not have any associated nausea, vomiting or shortness of breath. There was no other radiation of her chest pain. She has never had an episode like this in the past. PAST MEDICAL HISTORY: 1. Chronic headache. 2. Hypertension. 3. Diabetes mellitus type 2. 4. Hypothyroidism. MEDICATIONS: See admit medication reconciliation form. ALLERGIES: MULTIPLE -- SEE LIST. PAST SURGICAL HISTORY: 1. Appendectomy. 2. MONIQUE-BSO. 3. History of left femur surgery. 4. Spinal surgery. 5. Cholecystectomy. SOCIAL HISTORY: Alcohol, tobacco: None. The patient lives in [place] with her son. She is retired. FAMILY HISTORY: The patient's mother in her 50s of heart disease. She had multiple distant family members with heart disease as well. REVIEW OF SYSTEMS: GENERAL: No recent weakness, fatigue, or malaise. Denies fever. CARDIAC: Positive for chest pain as above. No palpitations, orthopnea, or PND. RESPIRATORY: Denies shortness of breath, cough or congestion. No history of hemoptysis. GASTROINTESTINAL: No nausea, vomiting, diarrhea, or constipation. No history of hepatitis. GENITOURINARY: Denies dysuria, frequency, hematuria, or nocturia. HEMATOLOGIC: No easy bleeding or bruising. ENDOCRINE: No recent weight loss or weight gain. No temperature intolerance. NEUROLOGIC: Denies paresthesias or dizziness but positive headache as above. MUSCULOSKELETAL: No complaints of pain or weakness in bones, muscles or joints. PSYCHIATRIC: Denies depression or anxiety. OBJECTIVE: VITAL SIGNS: Temperature 98.1, pulse 70, respirations 24, blood pressure 145/85, and pulse ox 97% on room air. GENERAL: This is a well-appearing female, in no acute distress. HEENT: Atraumatic, normocephalic. Sclerae are clear and anicteric. Oral mucosa is moist. NECK: Soft, supple, normal range of motion. No tenderness, bruits, goiter, mass or adenopathy. There is no JVD. LUNGS: Clear to auscultation bilaterally. HEART: Regular rate and rhythm without murmurs, S3 or S4. ABDOMEN: Soft, nontender, nondistended. Positive bowel sounds. No masses felt. EXTREMITIES: Warm and well perfused without evidence of edema, cyanosis or clubbing. NEUROLOGIC: Cranial nerves 2 through 12 are grossly intact and symmetric. SKIN: Intact. LABORATORY DATA: WBC 8.2, hemoglobin 13.5, hematocrit 41.7, and platelets 271. Sodium 139, potassium 4.1, BUN 19, creatinine 0.91, glucose 106. AST 19, ALT 23, alkaline phosphatase 68. Troponin I less than 0.02, proBNP 76. Total protein 7.4, albumin 3.5. Chest x-ray: "No acute cardiopulmonary disease." EKG: No signs of acute coronary syndrome. ASSESSMENT: 1. Substernal chest pain. 2. Diabetes mellitus type 2. 3. Hypertension. 4. Headache. 5. Family history of heart disease. 6. Hypothyroidism. PLAN: 1. This patient will be admitted to [facility] for further evaluation and management. 2. Follow cardiac enzymes every 6 hours and repeat EKG in a.m. 3. Start aspirin and resume home medications. 4. Consult Dr. Stone for further evaluation and will leave n.p.o. for the morning in case further diagnostic evaluation needs to be performed. 5. Keep the patient on telemetry. 6. Follow closely and make changes as clinically indicated. Shamar Sutherland MD DR: JESSICA/wilfrido JOB# [id number]
[2018-12-29] MEDS: PEPCID PO SCH (20:37)
[2018-12-29] MEDS: ASPIRIN PO PRN (20:38)
[2018-12-30] MEDS: ASPIRIN PO PRN ×2 (02:46→14:19)
[2018-12-30 05:35] VITALS: BP 103/44
[2018-12-30 05:37] LABS: HEMOGLOBIN 12.6 g/dL (12.0-15.0); MEAN CELL HGB 26.9 pg (26-34); MEAN CELL HGB CONCENTRATION 32.2 g/dL (33-37); MEAN CORP VOLUME 83.4 fL (78-100); MEAN PLATELET VOLUME 10.5 fL (7.8-11.0); WHITE BLOOD CELL 7.7 10^3/uL (4.5-11.0)
[2018-12-30 06:10] LABS: CALCIUM 8.9 mg/dL (8.4-10.5)
--- NOTE | 2018-12-30 07:11 | PCM.EKG ---
[facility] Test Date: 2018-12-30 Test Time: 07:08:47 Pat Name: ELIAS PEÑALOZA Department: Room: 332 A Gender: F Manual Winder: THERESA : [id number] Requested By: ENMA MAYORGA Order Number: [id number] Reading MD: Daryl Benedict Measurements Intervals [place] Rate: 81 P: 57 [place]: 180 QRS: 28 QRSD: 82 T: 44 QT: 394 QTc: 457 Interpretive Statements Normal sinus rhythm Normal ECG Compared to ECG 12/29/2018 11:52:35 No significant changes Electronically Signed On 12-30-2018 13:16:10 CDT by Daryl Benedict Please click the below link to view image of tracing.
[2018-12-30] MEDS: HUMULIN R SQ SCH ×2 (07:30→11:30)
[2018-12-30 07:54] VITALS: BP 108/57
[2018-12-30] MEDS ORDERED: ASPIRIN PO SCH (09:00)
[2018-12-30] MEDS ORDERED: NS 1000ML 1,000 ML ONE ×2 (09:35→11:20)
[2018-12-30] MEDS ORDERED: SUBLIMAZE ONE (09:35)
[2018-12-30] MEDS ORDERED: VERSED ONE (09:35)
[2018-12-30] MEDS ORDERED: HEPARIN ONE (09:35)
[2018-12-30] MEDS ORDERED: XYLOCAINE ONE (09:36)
[2018-12-30] MEDS: PEPCID PO SCH (10:54)
--- NOTE | 2018-12-30 11:10 | PRM.PN ---
Subjective Subjective Date: Dec 30, 2018 Time: 11:09 Subjective Feeling better overall. No complaints of chest pain overnight. Breathing is good. Master PO without problems. Patient History: Alzheimer's disease 32 MOTHER, , Age:60 years and older G8 SISTER Congestive heart failure 33 FATHER, , Age:57 FH: Alzheimers disease FH: breast cancer G8 SISTER G8 SISTER G8 SISTER (SURGICAL COMPLICATIONS), , Age:60 years and older FH: heart attack 33 FATHER, , Age:57 No known health problems 19 CHILD No Family History of: Asthma Cerebrovascular disorder Chronic obstructive pulmonary disease Diabetes insipidus Diabetes mellitus Hypertension Parkinson's disease VTE VTE Risk Total Score: 3 VTE Risk Score VTE Risk: Score 0-1 = Low Risk (Aggressive mobilization; early ambulation; no VTE prophylaxis required) Score 2: Moderate Risk (Intermittent/Pneumatic Compression Device OR Lovenox/Heparin/Coumadin) Score 3-4: High Risk (Intermittent/Pneumatic Compression Device AND Lovenox/Heparin/Coumadin) Score > or =5: Highest Risk (Intermittent/Pneumatic Compression Device AND Lovenox/Heparin/Coumadin) Review of Systems Constitutional: No: Fever, Chills, Sweats, Weakness, Malaise, Other Respiratory: No: Cough, Dry, Shortness of breath, SOB with excertion, Wheezing , Hemoptysis, Pleuritic Pain, Sputum, Wheezing, Other Cardiovascular: No: Chest Pain, Palpitations, Orthopnea, Paroxysmal Noc. Dyspnea, Edema, Lt Headedness, Other Gastrointestinal: No: Nausea, Vomiting, Abdominal Pain, Diarrhea, Constipation , Melena, Hematochezia, Other Genitourinary: No Dysuria, No Frequency, No Incontinence, No Hematuria, No Retention, No Other Musculoskeletal: No: other, neck pain, shoulder pain, arm pain, back pain, hand pain, leg pain, foot pain Neurological: No: Weakness, Numbness, Incoordination, Change in speech, Confusion, Seizures, Other Allergies: Coded Allergies: Penicillins (Verified Allergy, Unknown, RED BUMPS, 04/30/17) Sulfa (Sulfonamide Antibiotics) (Verified Allergy, Unknown, RED BUMPS, ) acetaminophen (Verified Allergy, Unknown, 01/09/18) cephradine (Verified Allergy, Unknown, 04/30/17) fentanyl (Verified Allergy, Unknown, 04/30/17) gabapentin (Verified Allergy, Unknown, "I BREAK OUT LIKE I HAVE BLOOD UNDER THE SKIN", 04/30/17) hydrocodone (Verified Allergy, Unknown, 01/09/18) iron (Verified Allergy, Unknown, 04/30/17) lansoprazole (Verified Allergy, Unknown, 04/30/17) morphine (Verified Allergy, Unknown, 04/30/17) oxycodone (Verified Allergy, Unknown, 04/30/17) oxytetracycline (Verified Allergy, Unknown, Swelling, 04/30/17) pantoprazole (Verified Allergy, Unknown, 04/30/17) propoxyphene (Verified Allergy, Unknown, 01/09/18) pseudoephedrine (Verified Allergy, Unknown, RED BUMPS, 04/30/17) raloxifene (Verified Allergy, Unknown, 04/30/17) tramadol (Verified Allergy, Unknown, 04/30/17) Scheduled Dicyclomine Hcl (Dicyclomine Hcl), 1 CAP PO TID, (Reported) Esomeprazole Magnesium (Nexium), 1 CAP PO DAILY, (Reported) Levothyroxine Sodium (Levothyroxine Sodium), 1 TAB PO DAILY, (Reported) Metformin Hcl (Metformin Hcl), 750 MG PO DAILY, (Reported) Verapamil Hcl (Verapamil Er), 1 CAP PO DAILY, (Reported) Scheduled PRN Butalbital/Aspirin/Caffeine (Vmmxkayped-Wji-Zszquhqq Cap), 1 EACH PO BID PRN for HEADACHE, (Reported) Nystatin (Nystatin), 5 MILLILITER PO QID PRN for RASH, (Reported) Tramadol Hcl (Tramadol Hcl), 50 MG PO for PAIN, (Reported) Objective Vitals and I/O Vital Sign - Last 24 Hours 12/29/18 12/29/18 12/29/18 12/29/18 11:45 11:52 11:56 12:00 Temp 98.1 98.1 98.1 98.1 Pulse 70 89 Resp 24 24 21 B/P (MAP) 145/85 (105) 158/81 (106) Pulse Ox 97 97 97 O2 Delivery Room Air Room Air 12/29/18 12/29/18 12/29/18 12/29/18 12:11 12:15 12:26 12:30 Pulse 90 90 Resp 25 23 B/P (MAP) 130/79 (96) 122/71 (88) Pulse Ox 94 95 12/29/18 12/29/18 12/29/18 12/29/18 12:41 12:45 12:56 13:00 Pulse 86 85 Resp 41 15 B/P (MAP) 135/67 (89) 135/78 (97) Pulse Ox 94 95 12/29/18 12/29/18 12/29/18 12/29/18 13:29 13:37 17:48 18:25 Temp 98.1 98.2 98.2 Pulse 85 73 Resp 15 18 B/P (MAP) 118/65 (82) Pulse Ox 95 95 O2 Delivery Room Air Room Air Room Air Room Air 12/29/18 12/29/18 12/29/18 12/29/18 20:12 20:12 21:45 23:50 Temp 97.9 97.8 97.9 97.8 Pulse 82 72 Resp 16 18 B/P (MAP) 111/59 (76) 104/50 (68) Pulse Ox 96 95 O2 Delivery Room Air Room Air Room Air 12/30/18 12/30/18 05:35 07:54 Temp 98.0 97.7 98.0 97.7 Pulse 74 76 Resp 18 16 B/P (MAP) 103/44 (63) 108/57 (74) Pulse Ox 93 94 O2 Delivery Room Air Intake and Output 12/29/18 12/29/18 12/30/18 15:00 23:00 07:00 Intake Total 118 ml 400 ml Output Total 400 ml 800 ml Balance -400 ml 118 ml -400 ml General: Alert, Oriented X3, Cooperative, No acute distress Neck: Supple, No JVD Lungs: Clear to auscultation Heart: Regular rate, Normal S1, Normal S2, No murmurs Abdomen: Normal bowel sounds, Soft, No tenderness, No masses Extremities: No clubbing, No cyanosis, No edema, Normal pulses, No tenderness/ swelling Neuro: Normal gait, Normal speech, Strength at 5/5 X4 ext, Normal tone, Sensation intact Psych/Mental Status: Mental status NL, Mood NL All Results(Lab/Rad) Laboratory Tests Test 12/29/18 11:50 12/29/18 17:03 12/30/18 00:16 12/30/18 05:17 White Blood Count 8.2 10^3/uL 7.7 10^3/uL Red Blood Count 5.05 10^6/uL 4.69 10^6/uL Hemoglobin 13.5 g/dL 12.6 g/dL Hematocrit 41.7 % 39.1 % Mean Corpuscular Volume 82.6 fL 83.4 fL Mean Corpuscular Hemoglobin 26.7 pg 26.9 pg Mean Corpuscular Hemoglobin Concent 32.4 g/dL 32.2 g/dL Red Cell Distribution Width 17.2 % 17.0 % Platelet Count 271 10^3/uL 247 10^3/uL Mean Platelet Volume 10.0 fL 10.5 fL Neutrophils (%) (Auto) 65.3 % Lymphocytes (%) (Auto) 18.9 % Monocytes (%) (Auto) 8.7 % Neutrophils # (Auto) 5.3 10^3/uL Lymphocytes # (Auto) 1.6 10^3/uL Monocytes # (Auto) 0.7 10^3/uL Absolute Immature Granulocyte (auto 0.03 10^3 u/L Eosinophils % 6.2 % Basophils % 0.5 % Basophils # 0.0 10^3/uL Eosinophil Count 0.5 10^3/uL Prothrombin Time 9.9 SEC Prothrombin Time INR (Non-Therap) 1.0 Activated Partial Thromboplast Time 22.8 SEC D-Dimer 0.61 mg/L Sodium Level 139 mmol/L 142 mmol/L Potassium Level 4.1 mmol/L 4.2 mmol/L Chloride Level 102.0 mmol/L 106.0 mmol/L Carbon Dioxide Level 27.6 mmol/L 25.0 mmol/L Anion Gap 13.5 15.2 Blood Urea Nitrogen 19 mg/dL 18 mg/dL Creatinine 0.91 mg/dL 0.84 mg/dL Estimated GFR () 70.9 77.8 BUN/Creatinine Ratio 20.0 21.0 Glucose Level 106 mg/dL 121 mg/dL Calcium Level 9.0 mg/dL 8.9 mg/dL Total Bilirubin 0.3 mg/dL 0.3 mg/dL Aspartate Amino Transf (AST/SGOT) 19 U/L 18 U/L Alanine Aminotransferase (ALT/SGPT) 23 U/L 20 U/L Alkaline Phosphatase 68 U/L 61 U/L Total Creatine Kinase 99 U/L Troponin I < 0.02 ng/mL < 0.02 ng/mL < 0.02 ng/mL Pro-B-Type Natriuretic Peptide 76 pg/mL Total Protein 7.4 g/dL 6.7 g/dL Albumin 3.5 g/dL 3.2 g/dL Globulin 3.9 3.5 Percent Immature Gran (Cell Imm) 0.40 % Hemoglobin A1c 6.6 % Triglycerides Level 154 mg/dL Cholesterol Level 199 mg/dL LDL Cholesterol, Calculated 119.2 VLDL Cholesterol 30.8 HDL Cholesterol 49 mg/dL Cholesterol Ratio (LDL/HDL) [id number] Thyroid Stimulating Hormone (TSH) 3.443 mIU/mL Free Thyroxine 0.80 ng/dL Thyroxine (T4) Pending Free Triiodothyronine (T3) Index 1.96 pg/mL Current Medications Medications (Trade) Dose Ordered Sig/Aguilar Route PRN Reason Start Time Stop Time Status Last Admin Dose Admin Aspirin (Aspirin) 325 mg STK-MED ONCE .ROUTE 12/29/18 11:58 12/29/18 11:59 DC Aspirin (Aspirin) 325 mg STAT STAT PO 12/29/18 11:59 12/29/18 12:00 DC 12/29/18 12:00 Nitroglycerin (Nitrostat) 0.4 mg PRN PRN SL CHEST PAIN 12/29/18 12:00 01/28/19 11:59 12/29/18 12:00 Sodium Chloride 1,000 ml @ 50 mls/hr Q20H STAT IV 12/29/18 12:42 12/30/18 08:41 DC 12/29/18 12:50 Ketorolac Tromethamine (Toradol) 15 mg STAT STAT IV 12/29/18 12:46 12/29/18 12:48 DC 12/29/18 12:50 Sodium Chloride 1,000 ml @ ud STK-MED ONCE .ROUTE 12/29/18 12:50 12/29/18 12:52 DC Ketorolac Tromethamine (Toradol) 30 mg STK-MED ONCE .ROUTE 12/29/18 12:51 12/29/18 12:52 DC Aspirin (Aspirin) 81 mg DAILY PO 12/30/18 09:00 01/29/19 08:59 Aspirin (Aspirin) 650 mg Q4HR PRN PO PAIN MILD 12/29/18 17:00 01/28/19 16:59 12/30/18 02:46 Insulin Human Regular (Humulin R) Give 30 minutes before meal ACHS SQ 12/29/18 17:30 01/28/19 17:29 Dextrose (Dextrose 50%-Water Syringe) 25 ml STAT PRN IV HYPOGLYCEMIA 12/29/18 17:00 01/28/19 16:59 Famotidine (Pepcid) 20 mg BID PO 12/29/18 21:00 01/28/19 20:59 12/30/18 10:54 Heparin Sodium/ Sodium Chloride 1,000 ml @ ud STK-MED ONCE IV 12/30/18 09:34 12/30/18 09:35 DC Sodium Chloride 1,000 ml @ ud STK-MED ONCE .ROUTE 12/30/18 09:35 12/30/18 09:36 DC Heparin Sodium (Porcine) (Heparin) 5,000 unit STK-MED ONCE .ROUTE 12/30/18 09:35 12/30/18 09:36 DC Fentanyl Citrate (Sublimaze) 100 mcg STK-MED ONCE .ROUTE 12/30/18 09:35 12/30/18 09:37 DC Midazolam HCl (Versed) 1 mg STK-MED ONCE .ROUTE 12/30/18 09:35 12/30/18 09:37 DC Lidocaine HCl (Xylocaine) 20 mg STK-MED ONCE .ROUTE 12/30/18 09:36 12/30/18 09:37 DC Course Sepsis Screening Results: Posi: NEGATIVE Sepsis Qualifier/Stage: NO DEFINITE RISK Duration or Total Time Spent w: 60 mins Vitals & review Data Vital Sign - Last 24 Hours 12/29/18 12/29/18 11:45 11:52 Temp 98.1 98.1 98.1 98.1 Pulse 70 Resp 24 24 B/P (MAP) 145/85 (105) Pulse Ox 97 97 O2 Delivery Room Air Room Air Sepsis Infection Criteria Pres: None LEVEL 1 SEPSIS INFECTION CRITE: None/Not assessed LEVEL 2-SIRS (LIST ALL THAT AP: None/Not assessed Cardiovascular Evidence: Not Assessed or None Hematologic Evidence: None/Not assessed Hepatic Evidence: None/Not assessed Metabolic Evidence: None/Not assessed Neurological Evidence: None/Not assessed Respiratory Evidence: None/Not assessed Renal Evidence: None/Not assessed O2 Sat by Pulse Oximetry: 94 Assessment/Plan Assessment/Plan Assessment/Plan 1. Substernal chest pain - Stable and pain free currently. - Likely for [facility] today. 2. Diabetes mellitus type 2 - BS stable. - Continue SSI as needed. 3. Hypertension - Numbers stable. - Continue same meds. . 4. Headache - Pt. has chronic moderate to severe ROONEY. - Needs to follow up with her PCP for this. 5. Family history of heart disease. 6. Hypothyroidism. ENMA MAYORGA MD Dec 30, 2018 11:10
--- NOTE | 2018-12-30 12:21 | [facility] ---
DATE OF SERVICE: 12/30/2018 PRECATHETERIZATION DIAGNOSIS: Unstable angina. POSTCATHETERIZATION DIAGNOSES: Left main fair size vessel, fully patent, type 3 LAD with tortuosity without any flow obstruction, codominant circumflex fully patent, normal size. Right coronary artery fully patent. Left ventricle is normal in size with good contractility, ejection fraction of 60%. Angio-Seal deployed. Hemostasis achieved. ANESTHESIA: 2% lidocaine. PREOPERATIVE MEDICATIONS: Versed 2 mg IV. ANTICOAGULATION: Heparin 2000 units intra-arterially, 2000 units in the flush solution, 1000 units in the dye solution. Dye used is Omnipaque. Total amount is 65 mL. CATHETERS: JL4 6-[place]er, JR4 6-[place], and 6-[place] angled pigtail catheter. ARTERIAL TIME: 10 minutes. FLUOROSCOPY TIME: 1.9 minutes. PROCEDURES: Left heart catheterization, bilateral selective coronary arteriography, left ventriculography via right femoral Holly approach. NARRATION OF PROCEDURE: Under local anesthesia, right femoral artery was punctured percutaneously by arterial needle, guide wire passed in right femoral artery, 6-[place] Cordis sheath introduced, side port of the sheath used for femoral arterial pressure monitoring. Sheath anchored with suture. Left Holly catheter introduced over guide wire into ascending aorta left coronary artery cannulated and left coronary angiography performed in CUBAN and BETTENCOURT projections with craniocaudal applications to visualize all branches. Left catheter exchanged for right coronary catheter and right coronary angiography performed in CUBAN and BETTENCOURT. This catheter exchanged for 6-[place] Island[place] pigtail catheter and catheter crossed the aortic valve and left ventricular LVEDP measured and LV gram performed in 30 degrees BETTENCOURT view with 30 mL Omnipaque dye and panning of descending aorta attempted. Patient tolerated procedure well. No complications of procedure. Angio-Seal deployed for hemostasis. HEMODYNAMICS: LVEDP 10-15 mm, LV pressure 147/15 femoral artery pressure is 170/60 with a mean of 90. No gradient across the aorta on pullback of the central catheter. FINAL CONCLUSION: Normal coronary angiogram, normal LV function, pursue noncardiac causes of chest pain. RECOMMENDATIONS: Risk factor modification with tight control of blood pressure, diabetes and dyslipidemia. Laxmichand MD Bertha DR: SARITA/wilfrido JOB# [id number]
[2018-12-30 12:22] VITALS: BP 108/57
--- NOTE | 2018-12-30 12:51 | NUR ---
procedure Patient returned to room 332 on a stretcher from label cutter. Angioseal right groin; site soft, clean, dry, no pain, no bruising, no hematoma. Patient to lie flat until 1352.
--- NOTE | 2018-12-30 13:40 | NUR ---
DISCHARGE PLAN CM VISITED WITH PATIENT REGARDING D/C PLAN. PATIENT STATES SHE LIVES AT HOME WITH HER SON WHO IS VERY SUPPORTIVE. SHE IS INDEPENDENT OF ADLS AND DOES NOT HAVE OR USE DME IN THE HOME. PATIENT WAS EDUCATED ON HH SERVICES AND VERBALLY REFUSED NEED FOR HOME HEALTH. CHOICE LETTER WAS SIGNED AND PLACED IN CHART. D/C GOAL IS FOR PATIENT TO D/C HOME WITH SON AND RESUME ROUTINE CARE THERE. NO FURTHER NEEDS NOTED AT THIS TIME.
[2018-12-30 17:00] VITALS: BP 108/57
--- NOTE | 2018-12-30 17:00 | NUR ---
Discharge Patient discharged home after completing her post Cath flat time. Denied pain. Education provided, teach back method used, for post cath instructions. Included S&S of infection. Lift restrictions, driving restrictions, bath tub restrictions, when to remove bandage, and how to hold pressure at the site in case of bleeding. IV discontinued. Telemetry discontinued. Patient to the exit in a wheelchair, taking all of her belongings.
--- NOTE | 2018-12-31 04:44 | CNH ---
DATE OF CONSULTATION: 12/30/2018 CHIEF COMPLAINT: Chest pain. PRIMARY PHYSICIAN: Shamar Sutherland MD HISTORY OF PRESENT ILLNESS: The patient is an 88-year-old white female who has underlying history of hypertension and [id number] diabetes mellitus and hypothyroidism and she has been diabetic for about 4-5 years and she presented with a 1-3 hour history of retrosternal and associated epigastric pressure, heaviness, tightness and radiating to the back and it lasted for a while and then subsequently subsided. She had a similar episode 2 days ago and her EKG was normal, but with risk factors of dyslipidemia, hypertension, diabetes and hypothyroidism. The patient was admitted with diagnosis of probably unstable angina for further evaluation and management. ALLERGIES: PENICILLIN, TYLENOL, FENTANYL, GABAPENTIN, HYDROCODONE, LANSOPRAZOLE, MORPHINE, OXYCODONE, OXYTETRACYCLINE, PSEUDOEPHEDRINE, LOXAPINE, ULTRAM and looks she has a long list of allergies. MEDICATIONS: She is on Nexium 40 mg once a day. She is on butal, aspirin, caffeine combination one tablet twice a day on p.r.n. basis for headache, dicyclomine 10 mg 3 times a day, Ultram 50 mg 1 p.r.n. basis for pain and verapamil 240 mg once a day, metformin 750 mg once a day, Levothroid 50 mcg once a day. PAST MEDICAL HISTORY: History of asthma in the past and history of hypertension, hypertensive heart disease, non-insulin dependent diabetes mellitus, GERD manifestation, hypothyroidism, appendectomy, hysterectomy. SOCIAL HISTORY: Nonsmoker, no ethanol abuse. FAMILY HISTORY: Positive for heart problems. Her father had heart attack and cardiac disease in his 50s. PHYSICAL EXAMINATION: GENERAL: She is alert, awake and oriented ____ pounds and 73 kg, BMI 30.4 with 98 temperature, pulse rate 82, respirations were 18, and 120/60 blood pressure, 96 saturation on room air. Pleasant lady. HEENT: Unremarkable. No jugular venous distention. No carotid bruit. CHEST: Chest wall was normal. LUNGS: Clear. HEART: Sounds are normal. ABDOMEN: Soft, nontender, no epigastric tenderness. She is post cholecystectomy according to her history. EXTREMITIES: Distal pulses fairly well felt. NEUROLOGIC: Intact. EKG: There is no sinus rhythm with nonspecific ST-T wave changes. LABORATORY DATA: Showed 13.4 hemoglobin, subsequently 12.6. White count 7.7. Chemistries were normal with a BUN of 19, creatinine of 0.91 and potassium of 4.2, hemoglobin A1c of 6.6 and her LDL was 119, total cholesterol 199 and HDL was 49, free T4 was 0.8 and her troponins x 3 were negative. IMPRESSION: New onset rest angina, unstable angina, rule out acute coronary ischemic substrate with multiple risk factors of hypertension, diabetes, hypothyroidism with a very positive family history for heart problems. RECOMMENDATIONS: At this time, we will probably do cardiac catheterization to assess the coronary anatomy and continue her medications. Further management will depend on the results of the coronary angiogram. Thank you very much for this consultation. Deo Stone MD DR: SARITA/wilfrido JOB# [id number]
[2018-12-31 08:24] LABS: THYROXINE (T4) TOTAL(REF) 5.7 ug/dL (4.5-12.0)
--- NOTE | 2018-12-31 12:39 | DSH ---
DATE OF DISCHARGE: 12/30/2018 ADMITTING DIAGNOSES: 1. Substernal chest pain. 2. Diabetes mellitus type 2. 3. Hypertension. 4. Headache. FAMILY HISTORY: 1. Heart disease. 2. Hypothyroidism. DISCHARGE DIAGNOSES: 1. Substernal chest pain. 2. Diabetes mellitus type 2. 3. Hypertension. 4. Headache. DISCHARGE DIET: Cardiac. DISCHARGE DISPOSITION: Home. FOLLOWUP: Follow up with PCP in 1-2 weeks. HOSPITAL COURSE: This is an 88-year-old female that was admitted to [facility] on 12/29/2018 with substernal chest pain that occurred at rest. Cardiac enzymes and EKG were performed every 6 hours x 3 and these were within normal limits. Dr. Deo Stone was consulted and took the patient to the cardiac catheterization lab on 12/30/2018 and the patient was found to have normal coronaries as well as an ejection fraction of 60% with good contractility. The patient did well perioperatively and postoperatively without complications. Her condition had improved significantly and she was not having any further chest pain. There were no significant abnormalities in her laboratory evaluation or vitals. She was able to be discharged to home in stable condition with instructions to follow up with her PCP within 2 weeks. Shamar Sutherland MD DR: JESSICA/wilfrido JOB# [id number]
== END 2018-12-30 15:59 | disposition home or self-care (01) | DRG 287 ==
LOC: ER 11:41 → MS 12:39 → EDPENDDISTM 12-30 16:10
PROVIDERS: ADMIT Internal Medicine; ATTEND Internal Medicine
PROC: 4A023N7 Measurement of Cardiac Sampling and Pressure, Left Heart, Percutaneous Approach (ICD-10-PCS; principal; 2018-12-30)
PROC: B2111ZZ Fluoroscopy of Multiple Coronary Arteries using Low Osmolar Contrast (ICD-10-PCS; 2018-12-30)
PROC: B2151ZZ Fluoroscopy of Left Heart using Low Osmolar Contrast (ICD-10-PCS; 2018-12-30)
DX: R07.2 Precordial pain (principal); E11.9 Type 2 diabetes mellitus without complications; E03.9 Hypothyroidism, unspecified; I11.9 Hypertensive heart disease without heart failure; J45.909 Unspecified asthma, uncomplicated; R51 Headache; E78.5 Hyperlipidemia, unspecified; K21.9 Gastro-esophageal reflux disease without esophagitis; Z90.49 Acquired absence of other specified parts of digestive tract; Z90.710 Acquired absence of both cervix and uterus; Z79.84 Long term (current) use of oral hypoglycemic drugs; Z88.0 Allergy status to penicillin; Z88.2 Allergy status to sulfonamides; Z88.1 Allergy status to other antibiotic agents; Z88.8 Allergy status to other drugs, medicaments and biological substances; Z88.5 Allergy status to narcotic agent; Z82.49 Family history of ischemic heart disease and other diseases of the circulatory system; Z81.8 Family history of other mental and behavioral disorders; Z84.89 Family history of other specified conditions
CPT/HCPCS: 36415; 71045; 80053; 80061; 82550; 82948; 83036; 83880; 84436; 84439; 84443; 84484; 85025; 85027; 85379; 85610; 85730; 93005; 93458; 99152; 99153; 99285; C1760; C1894; G0378; J1644; J1885; J2250; J3010; J7030; Q9967

== ENCOUNTER → 2020-01-08 | Outpatient (CLI) | payer MEDICARE ==
[~2020-01-08] MED LIST changes: -OMEP20CA12 PO; +OMEP20CA19 PO
--- NOTE | 2020-01-08 14:44 | DIREP ---
PROCEDURE:XRAY SPINE LUMBAR 2-3 VWS COMPARISON:[facility], CT, CT ABD/PELVIS W/WO, 03/02/2017, 09:42 AM. INDICATIONS:M54.5 LOW BACK PAIN FINDINGS: ALIGNMENT:Mild levocurvature VERTEBRAE:Ventral spondylosis. Moderate dorsal facet arthropathy. DISK SPACES:Multilevel degenerative disc disease at L1-2, L2-3, L3-4, and L5-S1. SPONDYLOLISTHESIS:Grade 1-2 spondylolisthesis of L5 on S1. SACROILIAC JOINTS:Normal. OTHER:Atheromatous calcifications. CONCLUSION:Extensive degenerative changes of the lumbar spine as above Dictated by: Luis Rutherford M.D. on 01/08/2020 at 02:40 PM
== END | disposition home or self-care (01) ==
LOC: RAD 13:53
PROVIDERS: ATTEND Pain Medicine Pain Medicine
DX: M47.817 Spondylosis without myelopathy or radiculopathy, lumbosacral region (principal)
CPT/HCPCS: 72100

== ENCOUNTER → 2020-03-22 | Outpatient (CLI) | payer MEDICARE | END | disposition home or self-care (01) | LOC: NPLAB 02:06 | PROVIDERS: ATTEND Nurse Practitioner | DX: N39.0 Urinary tract infection, site not specified (principal) | CPT/HCPCS: 87077; 87086; 87186 ==

== ENCOUNTER → 2020-05-12 | Outpatient (CLI) | payer MEDICARE ==
[~2020-05-12] MED LIST changes: -DICL1ADH15 TP; +DICL1PAT11 TP
== END | disposition home or self-care (01) ==
LOC: LAB 16:11
PROVIDERS: ATTEND Nurse Practitioner Adult Health
DX: N39.0 Urinary tract infection, site not specified (principal)
CPT/HCPCS: 87086

== ENCOUNTER → 2020-05-20 | Outpatient (CLI) | payer MEDICARE ==
--- NOTE | 2020-05-20 14:18 | DIREP ---
PROCEDURE:XRAY SPINE THORACIC 3 VWS COMPARISON:None. INDICATIONS:LOW BACK PAIN TECHNIQUE:AP & lateral views of the thoracic spine and a swimmer's view of the cervicothoracic junction are provided. FINDINGS: ALIGNMENT:On the lateral view, there is mild loss of thoracic kyphosis. No spondylolisthesis is seen. A gentle dextroscoliosis of the mid and lower thoracic spine noted. VERTEBRAE:No acute compression fractures are seen. DISK SPACES:Mild narrowing of the disc space with vertebral endplate sclerosis and mild ventral osteophyte formation. OTHER:Normal. CONCLUSION:Mild DJD in the thoracic spine. No acute compression fractures are seen. Dictated by: Charles Stewart MD on 05/20/2020 at 02:16 PM
--- NOTE | 2020-05-20 14:28 | DIREP ---
PROCEDURE:XR ABDOMEN 2 VIEWS COMPARISON:None. INDICATIONS:LOW BACK PAIN TECHNIQUE:Flat and upright views of the abdomen are provided. FINDINGS: BOWEL GAS PATTERN:No dilated gaseous small bowel to suggest small bowel obstruction. There is a moderate colonic stool burden present. CALCIFICATIONS:None significant. LUNG BASES:Clear. BONES:Left proximal femoral repair. Degenerative changes in the lumbar spine, limited assessment on AP views only, there appears to be intervertebral disc height loss at multiple levels. OTHER:Three views of the abdomen and pelvis were obtained. Surgical clips in the right upper quadrant suggest previous cholecystectomy. CONCLUSION: 1. Moderate colonic stool burden may suggest constipation. 2. Intervertebral disc height loss at multiple levels in the lumbar spine, AP views only. Dictated by: Yumiko Garg MD on 05/20/2020 at 02:25 PM
== END | disposition home or self-care (01) ==
LOC: RAD 13:29
PROVIDERS: ATTEND Nurse Practitioner Adult Health
DX: M47.814 Spondylosis without myelopathy or radiculopathy, thoracic region (principal); M51.36 Other intervertebral disc degeneration, lumbar region; M54.5 Low back pain
CPT/HCPCS: 72072; 74019

== ENCOUNTER → 2020-05-25 | Outpatient (CLI) | payer MEDICARE | END | disposition home or self-care (01) | LOC: NPLAB 11:22 | PROVIDERS: ATTEND Nurse Practitioner Adult Health | DX: N39.0 Urinary tract infection, site not specified (principal) | CPT/HCPCS: 36415; 87086 ==

== ENCOUNTER → 2020-05-27 | Outpatient (CLI) | payer MEDICARE | END | disposition home or self-care (01) | LOC: LAB 16:42 | PROVIDERS: ATTEND Nurse Practitioner Adult Health | DX: N39.0 Urinary tract infection, site not specified (principal) | CPT/HCPCS: 87086 ==

== ENCOUNTER → 2020-06-17 | Outpatient (CLI) | payer MEDICARE | END | disposition home or self-care (01) | LOC: NPLAB 10:25 | PROVIDERS: ATTEND Nurse Practitioner Adult Health | DX: N39.0 Urinary tract infection, site not specified (principal) | CPT/HCPCS: 87086 ==

== ENCOUNTER → 2020-07-08 | Outpatient (CLI) | payer MEDICARE ==
--- NOTE | 2020-07-08 12:57 | DIREP ---
PROCEDURE:T-SPINE 3 VIEWS TECHNIQUE:AP & lateral views of the thoracic spine and a swimmer's view of the cervicothoracic junction are provided. COMPARISON:[facility], CR, XRAY SPINE LUMBAR 2-3 VWS, 01/08/2020, 02:18 PM. [facility], CR, XRAY SPINE THORACIC 3 VWS, 05/20/2020, 01:42 PM. INDICATIONS:DORSALGIA FINDINGS: ALIGNMENT:Mild dextroscoliosis. Stable minimal grade 1 retrolisthesis at L2-3 due to degenerative change. VERTEBRAE:Generalized osteopenia. No compression fractures. DISK SPACES:Small amounts of ventral and lateral osteophytosis noted at multiple disc levels of the T-spine. OTHER:Calcification of the thoracic aorta. Surgical clips in right upper quadrant abdomen may be from prior cholecystectomy. CONCLUSION: 1. Osteopenic, mild degenerative, and kyphoscoliotic changes of the T-spine. 2. No evidence of acute bony injury to the T-spine. Dictated by: Nayan Can M.D. on 07/08/2020 at 12:53 PM
--- NOTE | 2020-07-08 13:00 | DIREP ---
PROCEDURE:XRAY RIBS 3VWS-RT COMPARISON:[facility], CT, CT CHEST W/O, 05/03/2018, 10:20 AM. INDICATIONS:DORSALGIA FINDINGS: RIBS:No fracture. OTHER:Osteopenia and degenerative changes in the T-spine. Surgical clips in right upper quadrant abdomen may be from prior cholecystectomy. Small stable calcified granuloma in the right mid lung. Degenerative changes of the right glenohumeral joint. CONCLUSION:No evidence of right rib fracture. Dictated by: Nayan Can M.D. on 07/08/2020 at 12:56 PM
== END | disposition home or self-care (01) ==
LOC: RAD 10:26
PROVIDERS: ATTEND Nurse Practitioner Adult Health
DX: M47.814 Spondylosis without myelopathy or radiculopathy, thoracic region (principal); M19.011 Primary osteoarthritis, right shoulder; J84.10 Pulmonary fibrosis, unspecified; M25.78 Osteophyte, vertebrae; I70.0 Atherosclerosis of aorta; M41.84 Other forms of scoliosis, thoracic region; Z90.49 Acquired absence of other specified parts of digestive tract
CPT/HCPCS: 72072; 71100-RT

== ENCOUNTER → 2020-07-08 | Outpatient (CLI) | payer MEDICARE | END | disposition home or self-care (01) | LOC: NPLAB 11:15 | PROVIDERS: ATTEND Nurse Practitioner Adult Health | DX: N39.0 Urinary tract infection, site not specified (principal) | CPT/HCPCS: 87077; 87086 ==

== ENCOUNTER → 2020-07-14 | Outpatient (CLI) | payer MEDICARE ==
--- NOTE | 2020-07-14 11:12 | DIREP ---
PROCEDURE:BONE DENSITY PERIPHERAL INDICATIONS:OSTEOPOROSIS COMPARISON:None. FINDINGS: Femur Proximal RIGHT femur bone mineral density (BMD) (g/cm2): 0.761 T-score : -2.0 Lumbar Lumbar bone mineral density (BMD) (g/cm2): 1.246T-score : 0.4 Imaging- slight levoscoliosis that may be positional LEFT FOREARM 1/3: bone mineral density (g/cm squared): 0.627T-score: -2.9 UD: bone mineral density (g/cm squared): 0.324T-score: -3.2 Total: bone mineral density (g/cm squared): 0.414T-score: -4.4 CONCLUSION: 1. Osteoporosis of the distal left forearm. Patient is at increased risk for development of fractures at this site. 2. Osteopenia of the lumbar spine and right hip. 3. Based on the [place] FRAX study, the patient's 10-year probability of a major osteoporotic fracture (clinical spine, forearm, hip or shoulder) is 19.9 %, and the 10-year probability of a hip fracture is 6.0 %. SUGGESTED RECOMMENDATIONS: Normal & Osteopenia:Consideration should be given to use of calcium supplementation, daily multiple vitamins and adequate exercise, as preventive measures against osteoporosis, if clinically indicated. Osteoporosis & Severe Osteoporosis:In addition to the above, consideration should be given to medical therapy against osteoporosis, if clinically indicated. Dictated by: Richard Gonzalez MD on 07/14/2020 at 11:07 AM
--- NOTE | 2020-07-14 11:20 | DIREP ---
PROCEDURE:MAMMO BILATERAL DIAGNOSTIC COMPLETE ULTRASOUND LEFT BREAST COMPARISON:[facility], US, US BREAST COMPLETE-LT, 07/14/2020, 10:25 AM. [facility], , BI TOMOSYNTHESIS SCREENING, 02/14/2019, 11:38 AM. INDICATIONS:History of breast cancer (records from [facility] show the patient has a family history of sisters and mother with breast cancer but no personal history breast cancer. The patient had a stereo biopsy left breast 2009 and an excisional biopsy left breast in 1989. The patient also reports palpable abnormality in the left breast for 30 years) BREAST COMPOSITION:There are scattered areas of fibroglandular density. DIAGNOSTIC MAMMOGRAM: Two standard views, both breasts, with a cleavage view and spot compression magnification 2 projections anterior upper-outer portion of the left breast, the site of the palpable abnormality long-standing reported by the patient. A radiodense marker was placed at the 1 o'clock radial 2 cm from the nipple, the site of the abnormality reported by the patient. There has been no interval change when compared with multiple prior exams. There is a scar in the periareolar region lateral anterior left breast from a surgical biopsy in 1989. Residual parenchyma is unchanged. Situs stereo biopsy left breast, marked with a radiodense marker, is also unchanged. The right breast is stable The axilla is unremarkable on both sides Computer Assisted Detection (CAD) was utilized. PHYSICAL EXAMINATION: BREAST SONOGRAM:COMPLETE ULTRASOUND OF THE LEFT BREAST INCLUDES ALL 4 QUADRANTS, SUBAREOLAR, AND THE AXILLARY REGIONS. Sonography of the left breast shows normal parenchyma, the area of interest in the upper outer quadrant was examined in detail, no suspicious findings. IMPRESSION:No mammographic evidence of malignancy. RECOMMENDATIONS: ROUTINE MAMMOGRAM AND CLINICAL EVALUATION. Repeat routine screening mammogram in one year based on [employer] Guidelines. OVERALL FINAL ASSESSMENT: BI RADS 1- Negative. Dictated by: Soraya Maynard MD on 07/14/2020 at 11:09 AM
--- NOTE | 2020-07-14 14:32 | DIREP ---
PROCEDURE:US BREAST-LT CONCLUSION:Please refer to the accompanying Diagnostic Mammogram Report, which will be available once transcribed and signed. Dictated by: Soraya Maynard MD on 07/14/2020 at 02:30 PM
== END | disposition home or self-care (01) ==
LOC: BD 07-12 13:37
PROVIDERS: ATTEND Nurse Practitioner Adult Health
DX: Z12.39 Encounter for other screening for malignant neoplasm of breast (principal); M81.0 Age-related osteoporosis without current pathological fracture; N63.20 Unspecified lump in the left breast, unspecified quadrant; R92.8 Other abnormal and inconclusive findings on diagnostic imaging of breast
CPT/HCPCS: 76641; 77066; 77080

== ENCOUNTER → 2020-07-29 | Outpatient (CLI) | payer MEDICARE | END | disposition home or self-care (01) | LOC: NPLAB 11:08 | PROVIDERS: ATTEND Nurse Practitioner Adult Health | DX: N39.0 Urinary tract infection, site not specified (principal) | CPT/HCPCS: 87086 ==

== ENCOUNTER 2020-08-23 11:44 | Observation (INO) | payer MEDICARE ==
[~2020-08-23] VITALS: Ht 152.4 cm; Wt 82.1 kg
[2020-08-23 12:00] VITALS: BP 135/82
[2020-08-23 12:22] VITALS: BP 135/82
[2020-08-23] MEDS ORDERED: NS 1000ML 1,000 ML IV STA (12:27)
--- NOTE | 2020-08-23 12:28 | NUR ---
ARRIVAL PT ARRIVED TO ED WITH C/O RECTAL BLEEDING OFF AND ON FOR 3 WEEKS WITH WORSENING IN THE LAST 3 DAYS. PT REPORTS STOOLS ARE BRIGHT RED DIARRHEA. PT ALSO HAS OFF AND ON EPISODES OF VOMITTING, NO BLOOD NOTED IN EMESIS. BOWEL SOUNDS HYPERACTIVE, TENDERNESS NOTED TO BLQ. PT REPORTS HISTOR OF CONSTIPATION THROUGHOUT LIFETIME. BED IN LOW LOCKED POSITION.
--- NOTE | 2020-08-23 12:33 | ER.PDOC ---
General Chief Complaint: Requesting Medical Care Stated Complaint: GI BLEED Time seen by MD: 12:17 Source: patient Exam Limitations: no limitations History of Present Illness Initial Comments Patient c/o 3 day history of diarrhea with bright red blood per stool. States stool is frankly bloody. She does become lightheaded upon standing. Timing/Duration: constant (x 3 days) Severity/Quality: moderate Location of pain: Generalize Associated Symptoms: bleeding w/o stool, blood mixed w/stool, bloody diarrhea Allergies: Coded Allergies: Penicillins (Verified Allergy, Unknown, RED BUMPS, 04/30/17) Sulfa (Sulfonamide Antibiotics) (Verified Allergy, Unknown, RED BUMPS, 04/30/17) acetaminophen (Verified Allergy, Unknown, 01/09/18) cephradine (Verified Allergy, Unknown, 04/30/17) fentanyl (Verified Allergy, Unknown, 04/30/17) gabapentin (Verified Allergy, Unknown, "I BREAK OUT LIKE I HAVE BLOOD UNDER THE SKIN", 04/30/17) hydrocodone (Verified Allergy, Unknown, 01/09/18) iron (Verified Allergy, Unknown, 04/30/17) lansoprazole (Verified Allergy, Unknown, 04/30/17) morphine (Verified Allergy, Unknown, 04/30/17) oxycodone (Verified Allergy, Unknown, 04/30/17) oxytetracycline (Verified Allergy, Unknown, Swelling, 04/30/17) pantoprazole (Verified Allergy, Unknown, 04/30/17) propoxyphene (Verified Allergy, Unknown, 01/09/18) pseudoephedrine (Verified Allergy, Unknown, RED BUMPS, 04/30/17) raloxifene (Verified Allergy, Unknown, 04/30/17) tramadol (Verified Allergy, Unknown, 04/30/17) Home Meds Reported Medications Esomeprazole Magnesium (NEXIUM) 40 Mg Capsule.dr, 1 CAP PO DAILY, #30 CAP 5 Refills 04/30/17 Butalbital/Aspirin/Caffeine ([id number] CAP) 1 Each Capsule, 1 EACH PO BID PRN for HEADACHE, CAPSULE 04/30/17 Dicyclomine Hcl (DICYCLOMINE HCL) 10 Mg Capsule, 1 CAP PO TID, #90 CAP 11 Refills 09/27/14 Tramadol Hcl (TRAMADOL HCL) 50 Mg Tablet, 50 MG PO PRN for PAIN, TABLET 09/27/14 Nystatin (NYSTATIN) 100,000 Unit/1 Ml Oral.susp, 5 MILLILITER PO QID PRN for RASH, #200 MILLILITER 09/27/14 Verapamil Hcl (VERAPAMIL ER) 240 Mg Cap24h.pel, 1 CAP PO DAILY, #30 CAP 5 Refills 09/27/14 Metformin Hcl (METFORMIN HCL) 500 Mg Tablet, 750 MG PO DAILY, #60 TAB 3 Refills 09/27/14 Levothyroxine Sodium (LEVOTHYROXINE SODIUM) 50 Mcg Tablet, 1 TAB PO DAILY, #30 TAB 5 Refills 09/27/14 Past Medical History Medical History: diabetes Surgical History: appendectomy, cholecystectomy, hysterectomy Family History Significant Family History: no pertinent family hx Social History Smoking: non-smoker Alcohol Use: none Drug Use: none Constitutional: no symptoms reported EENTM: no symptoms reported Respiratory: no symptoms reported Cardiovascular: no symptoms reported ABD/GI (ROS): see HPI, abdominal pain, blood streaked bowels, diarrhea Genitourinary: no symptoms reported Musculoskeletal: no symptoms reported Skin: no symptoms reported Psychiatric/Neurological: no symptoms reported All Other Systems: Reviewed and Negative Physical Exam General Appearance: No Apparent Distress, WD/WN EENT: eyes nml inspection (no conjunctival pallor), nml ENT inspection Neck: nml inspection, non-tender Respiratory: lungs clear, normal breath sounds, no respiratory distress, no accessory muscle use Cardiovascular: Regular Rate, Rhythm (no tachycardia), No Murmur Gastrointestinal: Hyperactive bowel sounds, Soft, Tenderness (diffusely) Extremities: Non-Tender, No Pedal Edema, No Calf Tenderness Neurologic/Psychiatric: Alert, Normal Mood/Affect, Oriented x 3 Skin: Normal Color (no pallor), Warm/Dry Results/Orders Results/Orders Orders - ALLEN MARIE DO Cbc With Auto Diff (08/23/20 12:27) Comprehensive Metabolic Panel (08/23/20 12:27) Amylase (08/23/20 12:27) Lipase (08/23/20 12:27) Helicobacter Pylori (08/23/20 12:27) PT (08/23/20 12:27) Ct Abd/Pel With Iv Contrast (08/23/20 12:27) Partial Thromboplastin Time. (08/23/20 12:27) Urinalysis (08/23/20 12:27) Type And Screen (08/23/20 12:27) Saline Lock (08/23/20 12:27) 0.9 % Sodium Chloride (Ns 1000ml) (08/23/20 12:27) Vital Signs Date Time Temp Pulse Resp B/P (MAP) Pulse Ox O2 Delivery O2 Flow Rate FiO2 08/23/20 14:37 97.7 80 16 129/67 (87) 97 Room Air 08/23/20 12:22 97.9 96 16 08/23/20 12:22 97.9 96 16 97 08/23/20 12:00 97.7 96 16 135/82 (99) 97 Room Air Administered Medications Medications (Trade) Dose Ordered Sig/Aguilar Route PRN Reason Start Time Stop Time Status Last Admin Dose Admin Sodium Chloride 1,000 ml @ 150 mls/hr STAT STAT IV 08/23/20 12:27 08/23/20 19:06 UNV 08/23/20 12:41 150 MLS/HR Laboratory Tests Test 08/23/20 12:55 White Blood Count 6.4 10^3/uL (4.5-11.0) Red Blood Count 4.52 10^6/uL (4.00-5.20) Hemoglobin 13.0 g/dL (12.0-15.0) Hematocrit 40.8 % (36.0-46.0) Mean Corpuscular Volume 90.3 fL (78-100) Mean Corpuscular Hemoglobin 28.8 pg (26-34) Mean Corpuscular Hemoglobin Concent 31.9 g/dL (33-36.5) L Red Cell Distribution Width 14.5 % (11.5-14.5) Platelet Count 201 10^3/uL (150-400) Mean Platelet Volume 10.0 fL (7.8-11.0) Neutrophils (%) (Auto) 72.4 % (41.0-85.0) Lymphocytes (%) (Auto) 15.9 % (24.0-44.0) L Monocytes (%) (Auto) 8.4 % (5.0-12.0) Neutrophils # (Auto) 4.6 10^3/uL (1.8-7.7) Lymphocytes # (Auto) 1.02 10^3/uL1 (1.0-4.8) Monocytes # (Auto) 0.5 10^3/uL (0.3-0.8) Absolute Immature Granulocyte (auto 0.02 10^3 u/L (0-2) Absolute Eosinophils (auto) 0.2 10^3/uL (0.0-0.2) Immature Granulocytes % 0.30 % (0.00-0.50) Eosinophils % 2.7 % (0.0-5.0) Basophils % 0.3 % (0.0-0.2) H Basophils # 0.0 10^3/uL (0.0-0.1) Prothrombin Time 11.0 SEC (9.3-11.3) Prothrombin Time INR (Non-Therap) 1.1 Activated Partial Thromboplast Time 23.6 SEC (24.67-30.72) Sodium Level 143 mmol/L (132-145) Potassium Level 3.9 mmol/L (3.6-5.2) Chloride Level 107.0 mmol/L (96-109) Carbon Dioxide Level 26.8 mmol/L (20.0-32) Anion Gap 13.1 Blood Urea Nitrogen 17 mg/dL (7-18) Creatinine 1.01 mg/dL (0.59-1.40) Estimated GFR () 62.7 (>/=60) Est GFR (CKD-EPI)(Non-Afr Japanese) 51.8 (>/=60) BUN/Creatinine Ratio 16.0 Glucose Level 168 mg/dL (70-110) H Calcium Level 8.6 mg/dL (8.4-10.5) Total Bilirubin 0.3 mg/dL (0.2-1.0) Aspartate Amino Transferase (AST) 16 U/L (0-35) Alanine Aminotransferase (ALT) 12 U/L (12-78) Alkaline Phosphatase 50 U/L (50-136) Total Protein 6.5 g/dL (6.4-8.2) Albumin 3.4 g/dL (3.4-5.0) Globulin 3.1 Albumin/Globulin Ratio 1.096 Amylase Level 61 U/L (25-115) Lipase 180 U/L (114-286) Helicobacter pylori Screen NEGATIVE (NEGATIVE) Blood Bank Test 08/23/20 12:55 Antibody Screen NEGATIVE Blood Type A NEGATIVE Progress Progress Hgb normal at 13 EKG/XRAY/CT/US CT Comments: inflammatory, infectious or ischemic distal colitis Consult/PCP Time Consult/PCP Called: 14:32 Consult/PCP: Dr. Jeronimo Reason/Comments: will admit ER DEPART Departure Time of Disposition: 14:31 Disposition: 09 ADMITTED INPATIENT Impression: Primary Impression: Colitis Additional Impression: GI bleed Condition: Stable Referrals: DREW SCHAFER MD (PCP) PRIMARY CARE PROVIDER Duration or Time Spent with Pa: 20 min Problem Qualifiers Additional Impression: GI bleed GI bleed type/associated pathology: anorectal hemorrhage Qualified Codes: K62.5 - Hemorrhage of anus and rectum ALLEN MARIE DO Aug 23, 2020 12:33
[2020-08-23 13:04] LABS: BASOPHIL % 0.3 % (0.0-0.2); EOSINOPHIL # 0.2 10^3/uL (0.0-0.2); EOSINOPHIL % 2.7 % (0.0-5.0); LYMPHOCYTES # 1.02 10^3/uL1 (1.0-4.8); LYMPHOCYTES % 15.9 % (24.0-44.0); MEAN CORP HGB 28.8 pg (26-34); MONOCYTES # 0.5 10^3/uL (0.3-0.8); MONOCYTES % 8.4 % (5.0-12.0); NEUTROPHIL # 4.6 10^3/uL (1.8-7.7); NEUTROPHILS % 72.4 % (41.0-85.0); RED CELL DISTRIBUTION WIDTH 14.5 % (11.5-14.5)
[2020-08-23 13:20] LABS: CALCIUM 8.6 mg/dL (8.4-10.5); CARBON DIOXIDE 26.8 mmol/L (20.0-32)
--- NOTE | 2020-08-23 14:21 | DIREP ---
PROCEDURE:CT ABD/PELVIS WITH CONTRAST TECHNIQUE:No oral contrast was given. Following the intravenous administration of contrast material, venous phase cuts were obtained through the abdomen and pelvis. The images were viewed at lung and soft tissue settings. Sagittal and coronal reconstructions are provided. COMPARISON:[facility], CT, CT ABD/PELVIS W/WO, 03/02/2017, 09:42 AM. INDICATIONS:rectal bleeding FINDINGS: LOWER CHEST:No infiltrate or pleural effusion. LIVER:Normal. BILIARY:Cholecystectomy. No biliary duct dilatation. PANCREAS:Normal. SPLEEN:Normal. URINARY TRACT:Bilateral parapelvic and cortical renal cysts. Normal nephrograms without obstruction or perinephric inflammation. Unremarkable urinary bladder. ADRENALS:Normal. AORTA/VASCULAR:Aortoiliac calcification without dilatation. Patent celiac, SMA and CHARISMA. RETROPERITONEUM:Normal. BOWEL/MESENTERY:Wall thickening and pericolic stranding of the splenic flexure and descending colon. Distal colonic diverticula. No bowel obstruction, inflammatory stranding, free fluid or air. Nonvisualized appendix. ABDOMINAL WALL:Small fat filled right inguinal hernia. PELVIS:Hysterectomy. BONES:Left proximal femoral fracture reduction. 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 OTHER:Normal. CONCLUSION: 1. Inflammatory, infectious or ischemic distal colitis. 2. Colonic diverticulosis without acute diverticulitis. 3. Bilateral renal cysts. Dictated by: Sasha Ashby MD on 08/23/2020 at 02:08 PM
[2020-08-23 14:37] VITALS: BP 129/67
[2020-08-23 15:51] LABS: APPEARANCE,URINE CLEAR (CLEAR); BILIRUBIN,URINE NEGATIVE (NEGATIVE); UA COLOR YELLOW (YELLOW); UROBILINOGEN,URINE NORMAL (NEGATIVE)
[2020-08-23 16:33] VITALS: BP 129/90
[2020-08-23] MEDS ORDERED: NS 1000ML 1,000 ML IV ONE (17:00)
[2020-08-23] MEDS ORDERED: DEXTROSE 50%-WATER SYRINGE IV PRN (17:00)
[2020-08-23] MEDS ORDERED: MYLANTA PO PRN (17:00)
[2020-08-23] MEDS ORDERED: AMBIEN PO PRN (17:00)
[2020-08-23] MEDS ORDERED: COLACE PO PRN (17:00)
[2020-08-23] MEDS ORDERED: LANOLIN HYDROUS TP PRN (17:00)
[2020-08-23] MEDS ORDERED: GENASYME PO PRN (17:00)
[2020-08-23] MEDS: HUMALOG SQ SCH ×2 (17:30→21:00)
--- NOTE | 2020-08-23 18:21 | PCM.HP ---
History of Present Illness History of Present Illness Ms. Lopez is a 89-year-old woman with past medical history of hypertension diabetes and hypothyroidism presents with right upper quadrant pain and 2 episodes of hematochezia starting yesterday. Yesterday morning she had one episode and she did not think much of it and was also had a little bit of pain but today her pain got worse in the right upper quadrant and she had a rather large bowel movement with some bright red blood in it. She did not have any fevers or chills. She has not had any nausea vomiting or hematemesis. She has not had any cough or difficulty breathing or shortness of breath. She is not felt dizzy with this but she did feel weak and she come to the emergency room for evaluation. She had CT scan done which showed evidence of colitis and hemoglobin is normal. She is admitted for observation for colitis. She denies any prior episodes of this. She has had colonoscopy. Regularly but her last one was 6 years ago and did not show any significant abnormalities. She denies any blood thinners and she is not taking any NSAIDs. last time she was in the hospital was in 2019 when she had chest pain was evaluated with cardiac catheterization which was negative for coronary disease. She is otherwise fairly active and well she lives with her son and she continues to drive and visit her sister in [place] and also her other sister in [place] Past Medical History Cardiac: HTN Endocrine: Diabetes, Hyperthyroidism, Hypothyroidism Past Social History Smoke: No Alcohol: none Lives: with Family Travel Hx EBOLA RISK:Travel to/contact w: No Review of Systems Constitutional: Weakness; No: Fever, Chills ENT: No: Ear discharge, Nose discharge, Nose congestion Respiratory: No: Cough, Dry, Shortness of breath Cardiovascular: No: Chest Pain, Palpitations Gastrointestinal: Abdominal Pain, Hematochezia; No: Nausea, Vomiting Genitourinary: No Dysuria Neurological: No: Incoordination, Change in speech Allergies: Coded Allergies: Penicillins (Verified Allergy, Unknown, RED BUMPS, 04/30/17) Sulfa (Sulfonamide Antibiotics) (Verified Allergy, Unknown, RED BUMPS, 04/30/17) acetaminophen (Verified Allergy, Unknown, 01/09/18) cephradine (Verified Allergy, Unknown, 04/30/17) fentanyl (Verified Allergy, Unknown, 04/30/17) gabapentin (Verified Allergy, Unknown, "I BREAK OUT LIKE I HAVE BLOOD UNDER THE SKIN", 04/30/17) hydrocodone (Verified Allergy, Unknown, 01/09/18) iron (Verified Allergy, Unknown, 04/30/17) lansoprazole (Verified Allergy, Unknown, 04/30/17) morphine (Verified Allergy, Unknown, 04/30/17) oxycodone (Verified Allergy, Unknown, 04/30/17) oxytetracycline (Verified Allergy, Unknown, Swelling, 04/30/17) pantoprazole (Verified Allergy, Unknown, 04/30/17) propoxyphene (Verified Allergy, Unknown, 01/09/18) pseudoephedrine (Verified Allergy, Unknown, RED BUMPS, 04/30/17) raloxifene (Verified Allergy, Unknown, 04/30/17) tramadol (Verified Allergy, Unknown, 04/30/17) Scheduled Dicyclomine Hcl (Dicyclomine Hcl), 1 CAP PO TID, (Reported) Esomeprazole Magnesium (Nexium), 1 CAP PO DAILY, (Reported) Levothyroxine Sodium (Levothyroxine Sodium), 1 TAB PO DAILY, (Reported) Metformin Hcl (Metformin Hcl), 750 MG PO DAILY, (Reported) Verapamil Hcl (Verapamil Er), 1 CAP PO DAILY, (Reported) Scheduled PRN Butalbital/Aspirin/Caffeine (Djoacahfsh-Gpv-Hfkmjurs Cap), 1 EACH PO BID PRN for HEADACHE, (Reported) Nystatin (Nystatin), 5 MILLILITER PO QID PRN for RASH, (Reported) Tramadol Hcl (Tramadol Hcl), 50 MG PO for PAIN, (Reported) VTE VTE Risk Total Score: 3 VTE Risk Score VTE Risk: Score 0-1 = Low Risk (Aggressive mobilization; early ambulation; no VTE prophylaxis required) Score 2: Moderate Risk (Intermittent/Pneumatic Compression Device OR Lovenox/Heparin/Coumadin) Score 3-4: High Risk (Intermittent/Pneumatic Compression Device AND Lovenox/Heparin/Coumadin) Score > or =5: Highest Risk (Intermittent/Pneumatic Compression Device AND Lovenox/Heparin/Coumadin) VTE VTE Present on Admission: No Currently receiving anticoagul: No VTE Risk Total Score: 3 Exam Vital Signs Vital Signs Date Time Temp Pulse Resp B/P (MAP) Pulse Ox O2 Delivery O2 Flow Rate FiO2 08/23/20 17:08 Room Air 08/23/20 16:33 97.8 83 20 129/90 (103) 98 General Appearance: Oriented X3, Cooperative HEENT: Atraumatic, EOMI, Mucous membr. moist/pink Respiratory: Clear to auscultation, Normal air movement Cardiovascular: Regular rate Abdominal: Normal bowel sounds, Soft Extremities: No cyanosis, No edema Skin: No rash, No breakdown, No lesions Neuro: Normal gait, Normal speech, Strength at 5/5 X4 ext Psych/Mental Status: Mental status NL, Mood NL Assessment/Plan Assessment/Plan Assessment/Plan Ms. Ace is an 89-year-old woman with past medical 2 hypertension diabetes hypothyroidism presenting with hematochezia and found to have colitis on CT scan Colitis: Bowel rest with clear liquids and start IV antibiotics with Flagyl. This may be ischemic or infectious in nature. She has had several colonoscopies in the past and she can follow-up with a GI doctor as an outpatient if doing well. Hematochezia: Monitor H&H and hold any blood thinners she is not taking any anticoagulation. Hypothyroidism continue replacement Diabetes hold antiglycemics for now and monitor blood sugars Patient History: Alzheimer's disease 32 MOTHER, , Age:60 years and older G8 SISTER Congestive heart failure 33 FATHER, , Age:57 FH: Alzheimers disease FH: breast cancer G8 SISTER G8 SISTER G8 SISTER (SURGICAL COMPLICATIONS), , Age:60 years and older FH: heart attack 33 FATHER, , Age:57 No known health problems 19 CHILD No Family History of: Asthma Cerebrovascular disorder Chronic obstructive pulmonary disease Diabetes insipidus Diabetes mellitus Hypertension Parkinson's disease LEILA DOUGLAS MD Aug 23, 2020 18:21
[2020-08-23] MEDS: BENTYL PO SCH (21:35)
[2020-08-23] MEDS: FLAGYL 500MG/ 100 ML NS 100 ML IV SCH (22:18)
[2020-08-24 00:30] VITALS: BP 127/72
[2020-08-24 04:36] VITALS: BP 129/72
[2020-08-24] MEDS: FLAGYL 500MG/ 100 ML NS 100 ML IV SCH ×2 (05:47→13:58)
[2020-08-24] MEDS: SYNTHROID PO SCH (05:47)
[2020-08-24 05:49] LABS: BASOPHIL % 0.5 % (0.0-0.2); EOSINOPHIL # 0.3 10^3/uL (0.0-0.2); EOSINOPHIL % 4.9 % (0.0-5.0); LYMPHOCYTES # 1.39 10^3/uL1 (1.0-4.8); LYMPHOCYTES % 24.3 % (24.0-44.0); MEAN CORP HGB 28.7 pg (26-34); MONOCYTES # 0.6 10^3/uL (0.3-0.8); MONOCYTES % 10.3 % (5.0-12.0); NEUTROPHIL # 3.4 10^3/uL (1.8-7.7); NEUTROPHILS % 59.8 % (41.0-85.0); PLATELET COUNT 180 10^3/uL (150-400); RED CELL DISTRIBUTION WIDTH 14.5 % (11.5-14.5)
[2020-08-24 07:45] VITALS: BP 138/83
[2020-08-24] MEDS ORDERED: SYNTHROID PO SCH (09:00)
[2020-08-24] MEDS: CALAN PO SCH (09:00)
--- NOTE | 2020-08-24 09:26 | PRM.PN ---
Subjective Subjective Date: Aug 24, 2020 Time: 09:25 Subjective pt is feeling better no more bleeding no pain. Patient History: Alzheimer's disease 32 MOTHER, , Age:60 years and older G8 SISTER Congestive heart failure 33 FATHER, , Age:57 FH: Alzheimers disease FH: breast cancer G8 SISTER G8 SISTER G8 SISTER (SURGICAL COMPLICATIONS), , Age:60 years and older FH: heart attack 33 FATHER, , Age:57 No known health problems 19 CHILD No Family History of: Asthma Cerebrovascular disorder Chronic obstructive pulmonary disease Diabetes insipidus Diabetes mellitus Hypertension Parkinson's disease VTE VTE Risk Total Score: 3 VTE Risk Score VTE Risk: Score 0-1 = Low Risk (Aggressive mobilization; early ambulation; no VTE prophylaxis required) Score 2: Moderate Risk (Intermittent/Pneumatic Compression Device OR Lovenox/Heparin/Coumadin) Score 3-4: High Risk (Intermittent/Pneumatic Compression Device AND Lovenox/Heparin/Coumadin) Score > or =5: Highest Risk (Intermittent/Pneumatic Compression Device AND Lovenox/Heparin/Coumadin) Review of Systems Constitutional: Weakness; No: Fever, Chills ENT: No: Ear discharge, Nose discharge, Nose congestion Respiratory: No: Cough, Dry, Shortness of breath Cardiovascular: No: Chest Pain, Palpitations Gastrointestinal: Abdominal Pain, Hematochezia; No: Nausea, Vomiting Genitourinary: No Dysuria Neurological: No: Incoordination, Change in speech Allergies: Coded Allergies: Penicillins (Verified Allergy, Unknown, RED BUMPS, 04/30/17) Sulfa (Sulfonamide Antibiotics) (Verified Allergy, Unknown, RED BUMPS, 04/30/17) acetaminophen (Verified Allergy, Unknown, 01/09/18) cephradine (Verified Allergy, Unknown, 04/30/17) fentanyl (Verified Allergy, Unknown, 04/30/17) gabapentin (Verified Allergy, Unknown, "I BREAK OUT LIKE I HAVE BLOOD UNDER THE SKIN", 04/30/17) hydrocodone (Verified Allergy, Unknown, 01/09/18) iron (Verified Allergy, Unknown, 04/30/17) lansoprazole (Verified Allergy, Unknown, 04/30/17) morphine (Verified Allergy, Unknown, 04/30/17) oxycodone (Verified Allergy, Unknown, 04/30/17) oxytetracycline (Verified Allergy, Unknown, Swelling, 04/30/17) pantoprazole (Verified Allergy, Unknown, 04/30/17) propoxyphene (Verified Allergy, Unknown, 01/09/18) pseudoephedrine (Verified Allergy, Unknown, RED BUMPS, 04/30/17) raloxifene (Verified Allergy, Unknown, 04/30/17) tramadol (Verified Allergy, Unknown, 04/30/17) Scheduled Dicyclomine Hcl (Dicyclomine Hcl), 1 CAP PO TID, (Reported) Esomeprazole Magnesium (Nexium), 1 CAP PO DAILY, (Reported) Levothyroxine Sodium (Levothyroxine Sodium), 1 TAB PO DAILY, (Reported) Metformin Hcl (Metformin Hcl), 750 MG PO DAILY, (Reported) Verapamil Hcl (Verapamil Er), 1 CAP PO DAILY, (Reported) Scheduled PRN Butalbital/Aspirin/Caffeine (Xubacyoufc-Tpk-Demdkmmy Cap), 1 EACH PO BID PRN for HEADACHE, (Reported) Nystatin (Nystatin), 5 MILLILITER PO QID PRN for RASH, (Reported) Tramadol Hcl (Tramadol Hcl), 50 MG PO for PAIN, (Reported) Objective Vitals and I/O Vital Sign - Last 24 Hours 08/23/20 08/23/20 08/23/20 08/23/20 12:00 12:22 12:22 14:37 Temp 97.7 97.9 97.9 97.7 Pulse 96 96 96 80 Resp 16 16 16 16 B/P (MAP) 135/82 (99) 129/67 (87) Pulse Ox 97 97 97 O2 Delivery Room Air Room Air 08/23/20 08/23/20 08/24/20 08/24/20 16:33 17:08 00:30 02:17 Temp 97.8 97.9 Pulse 83 75 Resp 20 18 B/P (MAP) 129/90 (103) 127/72 (90) Pulse Ox 98 97 O2 Delivery Room Air Room Air Room Air 08/24/20 08/24/20 04:36 07:45 Temp 97.5 98.3 Pulse 66 73 Resp 18 18 B/P (MAP) 129/72 (91) 138/83 (101) Pulse Ox 97 96 O2 Delivery Room Air Intake and Output 08/24/20 07:00 Intake Total 100 ml Balance 100 ml General: Oriented X3, Cooperative HEENT: Atraumatic, EOMI, Mucous membr. moist/pink Lungs: Normal air movement Heart: Regular rate Abdomen: Soft Extremities: No cyanosis, No edema Neuro: Normal gait, Normal speech, Strength at 5/5 X4 ext Psych/Mental Status: Mental status NL, Mood NL All Results(Lab/Rad) Laboratory Tests Test 08/23/20 12:55 08/23/20 14:36 08/23/20 17:27 08/23/20 21:27 White Blood Count 6.4 10^3/uL Red Blood Count 4.52 10^6/uL Hemoglobin 13.0 g/dL Hematocrit 40.8 % Mean Corpuscular Volume 90.3 fL Mean Corpuscular Hemoglobin 28.8 pg Mean Corpuscular Hemoglobin Concent 31.9 g/dL Red Cell Distribution Width 14.5 % Platelet Count 201 10^3/uL Mean Platelet Volume 10.0 fL Neutrophils (%) (Auto) 72.4 % Lymphocytes (%) (Auto) 15.9 % Monocytes (%) (Auto) 8.4 % Neutrophils # (Auto) 4.6 10^3/uL Lymphocytes # (Auto) 1.02 10^3/uL1 Monocytes # (Auto) 0.5 10^3/uL Absolute Immature Granulocyte (auto 0.02 10^3 u/L Absolute Eosinophils (auto) 0.2 10^3/uL Immature Granulocytes % 0.30 % Eosinophils % 2.7 % Basophils % 0.3 % Basophils # 0.0 10^3/uL Prothrombin Time 11.0 SEC Prothrombin Time INR (Non-Therap) 1.1 Activated Partial Thromboplast Time 23.6 SEC Sodium Level 143 mmol/L Potassium Level 3.9 mmol/L Chloride Level 107.0 mmol/L Carbon Dioxide Level 26.8 mmol/L Anion Gap 13.1 Blood Urea Nitrogen 17 mg/dL Creatinine 1.01 mg/dL Estimated GFR () 62.7 Est GFR (CKD-EPI)(Non-Afr Egyptian) 51.8 BUN/Creatinine Ratio 16.0 Glucose Level 168 mg/dL Calcium Level 8.6 mg/dL Total Bilirubin 0.3 mg/dL Aspartate Amino Transf (AST/SGOT) 16 U/L Alanine Aminotransferase (ALT/SGPT) 12 U/L Alkaline Phosphatase 50 U/L Total Protein 6.5 g/dL Albumin 3.4 g/dL Globulin 3.1 Albumin/Globulin Ratio 1.096 Amylase Level 61 U/L Lipase 180 U/L Helicobacter pylori Screen NEGATIVE Urine Collection Type VOID Urine Color YELLOW Urine Appearance CLEAR Urine Bilirubin NEGATIVE MG/DL Urine Ketones NEGATIVE Urine Specific [place] 1.015 Urine pH 5.0 Urine Protein NEGATIVE Urine Urobilinogen NORMAL Urine Nitrate NEGATIVE Urine Leukocyte Esterase SMALL Urine Blood NEGATIVE Urine RBC 0-2 RBC/HPF Urine WBC 2-5 WBC/HPF Urine Squamous Epithelial Cells FEW #/HPF Urine Bacteria NONE SEEN Urine Glucose NORMAL Bedside Glucose 74 113 Test 08/24/20 04:54 08/24/20 05:33 08/24/20 08:19 Bedside Glucose 110 114 White Blood Count 5.7 10^3/uL Red Blood Count 4.11 10^6/uL Hemoglobin 11.8 g/dL Hematocrit 37.4 % Mean Corpuscular Volume 91.0 fL Mean Corpuscular Hemoglobin 28.7 pg Mean Corpuscular Hemoglobin Concent 31.6 g/dL Red Cell Distribution Width 14.5 % Platelet Count 180 10^3/uL Mean Platelet Volume 10.5 fL Neutrophils (%) (Auto) 59.8 % Lymphocytes (%) (Auto) 24.3 % Monocytes (%) (Auto) 10.3 % Neutrophils # (Auto) 3.4 10^3/uL Lymphocytes # (Auto) 1.39 10^3/uL1 Monocytes # (Auto) 0.6 10^3/uL Absolute Immature Granulocyte (auto 0.01 10^3 u/L Absolute Eosinophils (auto) 0.3 10^3/uL Immature Granulocytes % 0.20 % Eosinophils % 4.9 % Basophils % 0.5 % Basophils # 0.0 10^3/uL Current Medications Medications (Trade) Dose Ordered Sig/Aguilar Route PRN Reason Start Time Stop Time Status Last Admin Dose Admin Sodium Chloride 1,000 ml @ 150 mls/hr STAT STAT IV 08/23/20 12:27 08/23/20 19:06 DC 08/23/20 12:41 Simethicone (Genasyme) 80 mg BID PRN PO gas 08/23/20 17:00 09/22/20 16:59 Zolpidem Tartrate (Ambien) 5 mg HS PRN PO INSOMNIA 08/23/20 17:00 09/22/20 16:59 Docusate Sodium (Colace) 100 mg BID PRN PO CONSTIPATION 08/23/20 17:00 09/22/20 16:59 Lanolin (Lanolin Hydrous) 28 gm PRN PRN TP Chapped Lips 08/23/20 17:00 09/22/20 16:59 Insulin Human Lispro (Humalog) 0-140 0 Units 141-200... ACHS SQ 08/23/20 17:30 09/22/20 17:29 Dextrose (Dextrose 50%-Water Syringe) 25 ml STAT PRN IV HYPOGLYCEMIA 08/23/20 17:00 09/22/20 16:59 Sodium Chloride 1,000 ml @ 100 mls/hr OT ONCE IV 08/23/20 17:00 08/23/20 18:17 DC Dicyclomine HCl (Bentyl) 10 mg TID PO 08/23/20 21:00 09/22/20 20:59 08/23/20 21:35 Levothyroxine Sodium (Synthroid) 50 mcg DAILY PO 08/24/20 09:00 08/23/20 17:40 DC Verapamil HCl (Calan) 240 mg DAILY PO 08/24/20 09:00 09/23/20 08:59 Levothyroxine Sodium (Synthroid) 50 mcg ACB PO 08/24/20 06:30 09/23/20 06:29 08/24/20 05:47 Metronidazole 100 ml @ 100 mls/hr Q8 IV 08/23/20 22:00 09/22/20 21:59 08/24/20 05:47 Course Sepsis Screening Results: Posi: NEGATIVE Sepsis Qualifier/Stage: NO DEFINITE RISK Duration or Total Time Spent w: 20 min Vitals & review Data Vital Sign - Last 24 Hours 08/23/20 08/23/20 08/23/20 08/23/20 12:00 12:22 12:22 14:37 Temp 97.7 97.9 97.9 97.7 Pulse 96 96 96 80 Resp 16 16 16 16 B/P (MAP) 135/82 (99) 129/67 (87) Pulse Ox 97 97 97 O2 Delivery Room Air Room Air 08/23/20 08/23/20 08/24/20 08/24/20 16:33 17:08 00:30 02:17 Temp 97.8 97.9 Pulse 83 75 Resp 20 18 B/P (MAP) 129/90 (103) 127/72 (90) Pulse Ox 98 97 O2 Delivery Room Air Room Air Room Air 08/24/20 08/24/20 04:36 07:45 Temp 97.5 98.3 Pulse 66 73 Resp 18 18 B/P (MAP) 129/72 (91) 138/83 (101) Pulse Ox 97 96 O2 Delivery Room Air Intake and Output 08/24/20 07:00 Intake Total 100 ml Balance 100 ml Laboratory Tests Test 08/23/20 12:55 08/23/20 14:36 08/23/20 17:27 08/23/20 21:27 White Blood Count 6.4 10^3/uL Red Blood Count 4.52 10^6/uL Hemoglobin 13.0 g/dL Hematocrit 40.8 % Mean Corpuscular Volume 90.3 fL Mean Corpuscular Hemoglobin 28.8 pg Mean Corpuscular Hemoglobin Concent 31.9 g/dL Red Cell Distribution Width 14.5 % Platelet Count 201 10^3/uL Mean Platelet Volume 10.0 fL Neutrophils (%) (Auto) 72.4 % Lymphocytes (%) (Auto) 15.9 % Monocytes (%) (Auto) 8.4 % Neutrophils # (Auto) 4.6 10^3/uL Lymphocytes # (Auto) 1.02 10^3/uL1 Monocytes # (Auto) 0.5 10^3/uL Absolute Immature Granulocyte (auto 0.02 10^3 u/L Absolute Eosinophils (auto) 0.2 10^3/uL Immature Granulocytes % 0.30 % Eosinophils % 2.7 % Basophils % 0.3 % Basophils # 0.0 10^3/uL Prothrombin Time 11.0 SEC Prothrombin Time INR (Non-Therap) 1.1 Activated Partial Thromboplast Time 23.6 SEC Sodium Level 143 mmol/L Potassium Level 3.9 mmol/L Chloride Level 107.0 mmol/L Carbon Dioxide Level 26.8 mmol/L Anion Gap 13.1 Blood Urea Nitrogen 17 mg/dL Creatinine 1.01 mg/dL Estimated GFR () 62.7 Est GFR (CKD-EPI)(Non-Afr Egyptian) 51.8 BUN/Creatinine Ratio 16.0 Glucose Level 168 mg/dL Calcium Level 8.6 mg/dL Total Bilirubin 0.3 mg/dL Aspartate Amino Transf (AST/SGOT) 16 U/L Alanine Aminotransferase (ALT/SGPT) 12 U/L Alkaline Phosphatase 50 U/L Total Protein 6.5 g/dL Albumin 3.4 g/dL Globulin 3.1 Albumin/Globulin Ratio 1.096 Amylase Level 61 U/L Lipase 180 U/L Helicobacter pylori Screen NEGATIVE Urine Collection Type VOID Urine Color YELLOW Urine Appearance CLEAR Urine Bilirubin NEGATIVE MG/DL Urine Ketones NEGATIVE Urine Specific [place] 1.015 Urine pH 5.0 Urine Protein NEGATIVE Urine Urobilinogen NORMAL Urine Nitrate NEGATIVE Urine Leukocyte Esterase SMALL Urine Blood NEGATIVE Urine RBC 0-2 RBC/HPF Urine WBC 2-5 WBC/HPF Urine Squamous Epithelial Cells FEW #/HPF Urine Bacteria NONE SEEN Urine Glucose NORMAL Bedside Glucose 74 113 Test 08/24/20 04:54 08/24/20 05:33 08/24/20 08:19 Bedside Glucose 110 114 White Blood Count 5.7 10^3/uL Red Blood Count 4.11 10^6/uL Hemoglobin 11.8 g/dL Hematocrit 37.4 % Mean Corpuscular Volume 91.0 fL Mean Corpuscular Hemoglobin 28.7 pg Mean Corpuscular Hemoglobin Concent 31.6 g/dL Red Cell Distribution Width 14.5 % Platelet Count 180 10^3/uL Mean Platelet Volume 10.5 fL Neutrophils (%) (Auto) 59.8 % Lymphocytes (%) (Auto) 24.3 % Monocytes (%) (Auto) 10.3 % Neutrophils # (Auto) 3.4 10^3/uL Lymphocytes # (Auto) 1.39 10^3/uL1 Monocytes # (Auto) 0.6 10^3/uL Absolute Immature Granulocyte (auto 0.01 10^3 u/L Absolute Eosinophils (auto) 0.3 10^3/uL Immature Granulocytes % 0.20 % Eosinophils % 4.9 % Basophils % 0.5 % Basophils # 0.0 10^3/uL Current Medications Medications (Trade) Dose Ordered Sig/Aguilar PRN Reason Start Time Stop Time Status Last Admin Dextrose (Dextrose 50%-Water Syringe) 25 ml STAT PRN HYPOGLYCEMIA 08/23/20 17:00 09/22/20 16:59 Dicyclomine HCl (Bentyl) 10 mg TID 08/23/20 21:00 09/22/20 20:59 11/9/20 21:35 Docusate Sodium (Colace) 100 mg BID PRN CONSTIPATION 08/23/20 17:00 09/22/20 16:59 Insulin Human Lispro (Humalog) 0-140 0 Units 141-200... ACHS 08/23/20 17:30 09/22/20 17:29 Lanolin (Lanolin Hydrous) 28 gm PRN PRN Chapped Lips 08/23/20 17:00 09/22/20 16:59 Levothyroxine Sodium (Synthroid) 50 mcg ACB 08/24/20 06:30 09/23/20 06:29 08/24/20 05:47 Metronidazole 100 ml @ 100 mls/hr Q8 08/23/20 22:00 09/22/20 21:59 08/24/20 05:47 Simethicone (Genasyme) 80 mg BID PRN gas 08/23/20 17:00 09/22/20 16:59 Verapamil HCl (Calan) 240 mg DAILY 08/24/20 09:00 09/23/20 08:59 Zolpidem Tartrate (Ambien) 5 mg HS PRN INSOMNIA 08/23/20 17:00 09/22/20 16:59 Sepsis Infection Criteria Pres: None LEVEL 1 SEPSIS INFECTION CRITE: None/Not assessed LEVEL 2-SIRS (LIST ALL THAT AP: None/Not assessed Cardiovascular Evidence: Not Assessed or None Hematologic Evidence: None/Not assessed Hepatic Evidence: None/Not assessed Metabolic Evidence: None/Not assessed Neurological Evidence: None/Not assessed Respiratory Evidence: None/Not assessed Renal Evidence: None/Not assessed O2 Sat by Pulse Oximetry: 96 Assessment/Plan Assessment/Plan Assessment/Plan Ms. Ace is an 89-year-old woman with past medical 2 hypertension diabetes hypothyroidism presenting with hematochezia and found to have colitis on CT scan Colitis: improved advance diet continue IV antibiotics with Flagyl. This may be ischemic or infectious in nature. She has had several colonoscopies in the past and she can follow-up with a GI doctor as an outpatient if doing well. Hematochezia: Monitor H&H and hold any blood thinners she is not taking any anticoagulation. h/h stable no further bleeding. Hypothyroidism continue replacement Diabetes hold antiglycemics for now and monitor blood sugars Plan Ms. Ace is an 89-year-old woman with past medical 2 hypertension diabetes hypothyroidism presenting with hematochezia and found to have colitis on CT scan Colitis: Bowel rest with clear liquids and start IV antibiotics with Flagyl. This may be ischemic or infectious in nature. She has had several colonoscopies in the past and she can follow-up with a GI doctor as an outpatient if doing well. Hematochezia: Monitor H&H and hold any blood thinners she is not taking any anticoagulation. Hypothyroidism continue replacement Diabetes hold antiglycemics for now and monitor blood sugars LEILA DOUGLAS MD Aug 24, 2020 09:26
[2020-08-24] MEDS: BENTYL PO SCH ×2 (09:59→14:00)
[2020-08-24] MEDS: HUMALOG SQ SCH ×4 (11:30→21:00)
[2020-08-24 11:45] VITALS: BP 121/74
--- NOTE | 2020-08-24 11:45 | NUR ---
DISCHARGE PLAN CASE MANAGEMENT VISITED WITH PATIENT CONCERNING DISCHARGE PLAN AND NEEDS. LIVES AT HOME WITH SON, RONNA. SHE IS INDEPENDENT OF ADLS. SHE HAS DME INCLUDING A WALKER AND CANE. DENIES NEED FOR HOME OXYGEN AND FOR OUTPATIENT SERVICES AT THIS TIME. PCP IS DR. SCHAFER OR [facility]. DISCHARGE PLAN IS TO DC HOME WITH SON AND CONTINUE SELF CARE. CM LEFT CONTACT INFORMATION AT BEDSIDE AND WILL CONTINUE TO FOLLOW FOR DISCHARGE PLANS.
[2020-08-24 12:00] VITALS: BP 138/83
[2020-08-24 16:25] VITALS: BP 100/68
[2020-08-25] MEDS: FLAGYL 500MG/ 100 ML NS 100 ML IV SCH ×2 (00:19→05:59)
[2020-08-25] MEDS: BENTYL PO SCH ×2 (00:19→09:17)
[2020-08-25 00:20] VITALS: BP 116/74
--- NOTE | 2020-08-25 02:37 | NUR ---
ambulate Pt ambulates with a steady gait to the restroom. pt states she not having diarrhea
[2020-08-25 04:54] VITALS: BP 112/52
[2020-08-25] MEDS: SYNTHROID PO SCH (05:59)
[2020-08-25] MEDS: CALAN PO SCH (09:00)
[2020-08-25 09:48] VITALS: BP 144/67
[2020-08-25] MEDS ORDERED: METR500T PO (10:39)
--- NOTE | 2020-08-25 10:41 | PRM.DC ---
Discharge Summary Date of Discharge: Aug 25, 2020 Time of Request to Discharge: 10:40 Hospital Course pt found to have colitis and treated with iv fluids and abx and improved. she will need outpt GI f/u and she has had colonoscopies in the past and will arrange and return for problems. Patient History: Alzheimer's disease 32 MOTHER, , Age:60 years and older G8 SISTER Congestive heart failure 33 FATHER, , Age:57 FH: Alzheimers disease FH: breast cancer G8 SISTER G8 SISTER G8 SISTER (SURGICAL COMPLICATIONS), , Age:60 years and older FH: heart attack 33 FATHER, , Age:57 No known health problems 19 CHILD No Family History of: Asthma Cerebrovascular disorder Chronic obstructive pulmonary disease Diabetes insipidus Diabetes mellitus Hypertension Parkinson's disease General: Oriented X3 HEENT: Mucous membr. moist/pink Lungs: Clear to auscultation Abdomen: Normal bowel sounds, Soft Extremities: No edema Neuro: Normal speech Psych/Mental Status: Mental status NL Scheduled Dicyclomine Hcl (Dicyclomine Hcl), 1 CAP PO TID, (Reported) Esomeprazole Magnesium (Nexium), 1 CAP PO DAILY, (Reported) Levothyroxine Sodium (Levothyroxine Sodium), 1 TAB PO DAILY, (Reported) Metformin Hcl (Metformin Hcl), 750 MG PO DAILY, (Reported) Metronidazole (Flagyl), 500 MG PO TID Verapamil Hcl (Verapamil Er), 1 CAP PO DAILY, (Reported) Scheduled PRN Butalbital/Aspirin/Caffeine (Rzowqevmeo-Ucm-Bnixtzhc Cap), 1 EACH PO BID PRN for HEADACHE, (Reported) Nystatin (Nystatin), 5 MILLILITER PO QID PRN for RASH, (Reported) Tramadol Hcl (Tramadol Hcl), 50 MG PO for PAIN, (Reported) Sepsis Evaluation @ Discharge Vital Sign - Last 24 Hours 08/23/20 08/23/20 08/23/20 08/23/20 12:00 12:22 12:22 14:37 Temp 97.7 97.9 97.9 97.7 Pulse 96 96 96 80 Resp 16 16 16 16 B/P (MAP) 135/82 (99) 129/67 (87) Pulse Ox 97 97 97 O2 Delivery Room Air Room Air 08/23/20 08/23/20 08/24/20 08/24/20 16:33 17:08 00:30 02:17 Temp 97.8 97.9 Pulse 83 75 Resp 20 18 B/P (MAP) 129/90 (103) 127/72 (90) Pulse Ox 98 97 O2 Delivery Room Air Room Air Room Air 08/24/20 08/24/20 04:36 07:45 Temp 97.5 98.3 Pulse 66 73 Resp 18 18 B/P (MAP) 129/72 (91) 138/83 (101) Pulse Ox 97 96 O2 Delivery Room Air Intake and Output 08/24/20 07:00 Intake Total 100 ml Balance 100 ml Laboratory Tests Test 08/23/20 12:55 08/23/20 14:36 08/23/20 17:27 08/23/20 21:27 White Blood Count 6.4 10^3/uL Red Blood Count 4.52 10^6/uL Hemoglobin 13.0 g/dL Hematocrit 40.8 % Mean Corpuscular Volume 90.3 fL Mean Corpuscular Hemoglobin 28.8 pg Mean Corpuscular Hemoglobin Concent 31.9 g/dL Red Cell Distribution Width 14.5 % Platelet Count 201 10^3/uL Mean Platelet Volume 10.0 fL Neutrophils (%) (Auto) 72.4 % Lymphocytes (%) (Auto) 15.9 % Monocytes (%) (Auto) 8.4 % Neutrophils # (Auto) 4.6 10^3/uL Lymphocytes # (Auto) 1.02 10^3/uL1 Monocytes # (Auto) 0.5 10^3/uL Absolute Immature Granulocyte (auto 0.02 10^3 u/L Absolute Eosinophils (auto) 0.2 10^3/uL Immature Granulocytes % 0.30 % Eosinophils % 2.7 % Basophils % 0.3 % Basophils # 0.0 10^3/uL Prothrombin Time 11.0 SEC Prothrombin Time INR (Non-Therap) 1.1 Activated Partial Thromboplast Time 23.6 SEC Sodium Level 143 mmol/L Potassium Level 3.9 mmol/L Chloride Level 107.0 mmol/L Carbon Dioxide Level 26.8 mmol/L Anion Gap 13.1 Blood Urea Nitrogen 17 mg/dL Creatinine 1.01 mg/dL Estimated GFR () 62.7 Est GFR (CKD-EPI)(Non-Afr Ivorian) 51.8 BUN/Creatinine Ratio 16.0 Glucose Level 168 mg/dL Calcium Level 8.6 mg/dL Total Bilirubin 0.3 mg/dL Aspartate Amino Transf (AST/SGOT) 16 U/L Alanine Aminotransferase (ALT/SGPT) 12 U/L Alkaline Phosphatase 50 U/L Total Protein 6.5 g/dL Albumin 3.4 g/dL Globulin 3.1 Albumin/Globulin Ratio 1.096 Amylase Level 61 U/L Lipase 180 U/L Helicobacter pylori Screen NEGATIVE Urine Collection Type VOID Urine Color YELLOW Urine Appearance CLEAR Urine Bilirubin NEGATIVE MG/DL Urine Ketones NEGATIVE Urine Specific [place] 1.015 Urine pH 5.0 Urine Protein NEGATIVE Urine Urobilinogen NORMAL Urine Nitrate NEGATIVE Urine Leukocyte Esterase SMALL Urine Blood NEGATIVE Urine RBC 0-2 RBC/HPF Urine WBC 2-5 WBC/HPF Urine Squamous Epithelial Cells FEW #/HPF Urine Bacteria NONE SEEN Urine Glucose NORMAL Bedside Glucose 74 113 Test 08/24/20 04:54 08/24/20 05:33 08/24/20 08:19 Bedside Glucose 110 114 White Blood Count 5.7 10^3/uL Red Blood Count 4.11 10^6/uL Hemoglobin 11.8 g/dL Hematocrit 37.4 % Mean Corpuscular Volume 91.0 fL Mean Corpuscular Hemoglobin 28.7 pg Mean Corpuscular Hemoglobin Concent 31.6 g/dL Red Cell Distribution Width 14.5 % Platelet Count 180 10^3/uL Mean Platelet Volume 10.5 fL Neutrophils (%) (Auto) 59.8 % Lymphocytes (%) (Auto) 24.3 % Monocytes (%) (Auto) 10.3 % Neutrophils # (Auto) 3.4 10^3/uL Lymphocytes # (Auto) 1.39 10^3/uL1 Monocytes # (Auto) 0.6 10^3/uL Absolute Immature Granulocyte (auto 0.01 10^3 u/L Absolute Eosinophils (auto) 0.3 10^3/uL Immature Granulocytes % 0.20 % Eosinophils % 4.9 % Basophils % 0.5 % Basophils # 0.0 10^3/uL Current Medications Medications (Trade) Dose Ordered Sig/Aguilar PRN Reason Start Time Stop Time Status Last Admin Dextrose (Dextrose 50%-Water Syringe) 25 ml STAT PRN HYPOGLYCEMIA 08/23/20 17:00 09/22/20 16:59 Dicyclomine HCl (Bentyl) 10 mg TID 08/23/20 21:00 09/22/20 20:59 08/23/20 21:35 Docusate Sodium (Colace) 100 mg BID PRN CONSTIPATION 08/23/20 17:00 09/22/20 16:59 Insulin Human Lispro (Humalog) 0-140 0 Units 141-200... ACHS 08/23/20 17:30 09/22/20 17:29 Lanolin (Lanolin Hydrous) 28 gm PRN PRN Chapped Lips 08/23/20 17:00 09/22/20 16:59 Levothyroxine Sodium (Synthroid) 50 mcg ACB 08/24/20 06:30 09/23/20 06:29 08/24/20 05:47 Metronidazole 100 ml @ 100 mls/hr Q8 08/23/20 22:00 09/22/20 21:59 08/24/20 05:47 Simethicone (Genasyme) 80 mg BID PRN gas 08/23/20 17:00 09/22/20 16:59 Verapamil HCl (Calan) 240 mg DAILY 08/24/20 09:00 09/23/20 08:59 Zolpidem Tartrate (Ambien) 5 mg HS PRN INSOMNIA 08/23/20 17:00 09/22/20 16:59 Course Sepsis Screening Results: Posi: NEGATIVE Sepsis Qualifier/Stage: NO DEFINITE RISK Duration or Total Time Spent w: 20 min Vitals & review Data Vital Sign - Last 24 Hours 08/23/20 08/23/20 08/23/20 08/23/20 12:00 12:22 12:22 14:37 Temp 97.7 97.9 97.9 97.7 Pulse 96 96 96 80 Resp 16 16 16 16 B/P (MAP) 135/82 (99) 129/67 (87) Pulse Ox 97 97 97 O2 Delivery Room Air Room Air 08/23/20 08/23/20 08/24/20 08/24/20 16:33 17:08 00:30 02:17 Temp 97.8 97.9 Pulse 83 75 Resp 20 18 B/P (MAP) 129/90 (103) 127/72 (90) Pulse Ox 98 97 O2 Delivery Room Air Room Air Room Air 08/24/20 08/24/20 04:36 07:45 Temp 97.5 98.3 Pulse 66 73 Resp 18 18 B/P (MAP) 129/72 (91) 138/83 (101) Pulse Ox 97 96 O2 Delivery Room Air Intake and Output 08/24/20 07:00 Intake Total 100 ml Balance 100 ml Laboratory Tests Test 08/23/20 12:55 08/23/20 14:36 08/23/20 17:27 08/23/20 21:27 White Blood Count 6.4 10^3/uL Red Blood Count 4.52 10^6/uL Hemoglobin 13.0 g/dL Hematocrit 40.8 % Mean Corpuscular Volume 90.3 fL Mean Corpuscular Hemoglobin 28.8 pg Mean Corpuscular Hemoglobin Concent 31.9 g/dL Red Cell Distribution Width 14.5 % Platelet Count 201 10^3/uL Mean Platelet Volume 10.0 fL Neutrophils (%) (Auto) 72.4 % Lymphocytes (%) (Auto) 15.9 % Monocytes (%) (Auto) 8.4 % Neutrophils # (Auto) 4.6 10^3/uL Lymphocytes # (Auto) 1.02 10^3/uL1 Monocytes # (Auto) 0.5 10^3/uL Absolute Immature Granulocyte (auto 0.02 10^3 u/L Absolute Eosinophils (auto) 0.2 10^3/uL Immature Granulocytes % 0.30 % Eosinophils % 2.7 % Basophils % 0.3 % Basophils # 0.0 10^3/uL Prothrombin Time 11.0 SEC Prothrombin Time INR (Non-Therap) 1.1 Activated Partial Thromboplast Time 23.6 SEC Sodium Level 143 mmol/L Potassium Level 3.9 mmol/L Chloride Level 107.0 mmol/L Carbon Dioxide Level 26.8 mmol/L Anion Gap 13.1 Blood Urea Nitrogen 17 mg/dL Creatinine 1.01 mg/dL Estimated GFR () 62.7 Est GFR (CKD-EPI)(Non-Afr Ivorian) 51.8 BUN/Creatinine Ratio 16.0 Glucose Level 168 mg/dL Calcium Level 8.6 mg/dL Total Bilirubin 0.3 mg/dL Aspartate Amino Transf (AST/SGOT) 16 U/L Alanine Aminotransferase (ALT/SGPT) 12 U/L Alkaline Phosphatase 50 U/L Total Protein 6.5 g/dL Albumin 3.4 g/dL Globulin 3.1 Albumin/Globulin Ratio 1.096 Amylase Level 61 U/L Lipase 180 U/L Helicobacter pylori Screen NEGATIVE Urine Collection Type VOID Urine Color YELLOW Urine Appearance CLEAR Urine Bilirubin NEGATIVE MG/DL Urine Ketones NEGATIVE Urine Specific [place] 1.015 Urine pH 5.0 Urine Protein NEGATIVE Urine Urobilinogen NORMAL Urine Nitrate NEGATIVE Urine Leukocyte Esterase SMALL Urine Blood NEGATIVE Urine RBC 0-2 RBC/HPF Urine WBC 2-5 WBC/HPF Urine Squamous Epithelial Cells FEW #/HPF Urine Bacteria NONE SEEN Urine Glucose NORMAL Bedside Glucose 74 113 Test 08/24/20 04:54 08/24/20 05:33 08/24/20 08:19 Bedside Glucose 110 114 White Blood Count 5.7 10^3/uL Red Blood Count 4.11 10^6/uL Hemoglobin 11.8 g/dL Hematocrit 37.4 % Mean Corpuscular Volume 91.0 fL Mean Corpuscular Hemoglobin 28.7 pg Mean Corpuscular Hemoglobin Concent 31.6 g/dL Red Cell Distribution Width 14.5 % Platelet Count 180 10^3/uL Mean Platelet Volume 10.5 fL Neutrophils (%) (Auto) 59.8 % Lymphocytes (%) (Auto) 24.3 % Monocytes (%) (Auto) 10.3 % Neutrophils # (Auto) 3.4 10^3/uL Lymphocytes # (Auto) 1.39 10^3/uL1 Monocytes # (Auto) 0.6 10^3/uL Absolute Immature Granulocyte (auto 0.01 10^3 u/L Absolute Eosinophils (auto) 0.3 10^3/uL Immature Granulocytes % 0.20 % Eosinophils % 4.9 % Basophils % 0.5 % Basophils # 0.0 10^3/uL Current Medications Medications (Trade) Dose Ordered Sig/Aguilar PRN Reason Start Time Stop Time Status Last Admin Dextrose (Dextrose 50%-Water Syringe) 25 ml STAT PRN HYPOGLYCEMIA 08/23/20 17:00 09/22/20 16:59 Dicyclomine HCl (Bentyl) 10 mg TID 08/23/20 21:00 09/22/20 20:59 08/23/20 21:35 Docusate Sodium (Colace) 100 mg BID PRN CONSTIPATION 08/23/20 17:00 09/22/20 16:59 Insulin Human Lispro (Humalog) 0-140 0 Units 141-200... ACHS 08/23/20 17:30 09/22/20 17:29 Lanolin (Lanolin Hydrous) 28 gm PRN PRN Chapped Lips 08/23/20 17:00 09/22/20 16:59 Levothyroxine Sodium (Synthroid) 50 mcg ACB 08/24/20 06:30 09/23/20 06:29 08/24/20 05:47 Metronidazole 100 ml @ 100 mls/hr Q8 08/23/20 22:00 09/22/20 21:59 08/24/20 05:47 Simethicone (Genasyme) 80 mg BID PRN gas 08/23/20 17:00 09/22/20 16:59 Verapamil HCl (Calan) 240 mg DAILY 08/24/20 09:00 09/23/20 08:59 Zolpidem Tartrate (Ambien) 5 mg HS PRN INSOMNIA 08/23/20 17:00 09/22/20 16:59 Sepsis Infection Criteria Pres: None LEVEL 1 SEPSIS INFECTION CRITE: None/Not assessed LEVEL 2-SIRS (LIST ALL THAT AP: None/Not assessed Cardiovascular Evidence: Not Assessed or None Hematologic Evidence: None/Not assessed Hepatic Evidence: None/Not assessed Metabolic Evidence: None/Not assessed Neurological Evidence: None/Not assessed Respiratory Evidence: None/Not assessed Renal Evidence: None/Not assessed O2 Sat by Pulse Oximetry: 96 Plan Discharge Disposition: Stable LEILA DOUGLAS MD Aug 25, 2020 10:41
== END 2020-08-25 17:15 | disposition home or self-care (01) ==
LOC: ER 11:44 → MS 14:55 → UNDOADMOB 14:55 → INTOOBSV 14:55
PROVIDERS: ADMIT Internal Medicine; ATTEND Internal Medicine
DX: K52.9 Noninfective gastroenteritis and colitis, unspecified (principal); K92.1 Melena; E03.9 Hypothyroidism, unspecified; E11.9 Type 2 diabetes mellitus without complications; I10 Essential (primary) hypertension; Z88.0 Allergy status to penicillin; Z79.899 Other long term (current) drug therapy; Z90.710 Acquired absence of both cervix and uterus
CPT/HCPCS: 36415 ×2; 74177; 80053; 81000; 82150; 82948 ×3; 83690; 85025 ×2; 85610; 85730; 86677; 86900; 87086; 96361; 96365; 96366 ×2; 96376; 99285; G0378 ×2; J3490 ×3; J7030; Q9965

== ENCOUNTER → 2021-02-15 | Outpatient (CLI) | payer OTHER ==
[~2021-02-15] MED LIST changes: -DICL1PAT11 TP; +DICL1PAT13 TP; +METR500T PO
--- NOTE | 2021-02-15 16:45 | DIREP ---
PROCEDURE:XRAY SPINE LUMBAR 2-3 VWS COMPARISON:[facility], , XRAY SPINE LUMBAR 2-3 VWS, 01/08/2020, 02:18 PM. INDICATIONS:LUMBAGO W/LT SCIATICA, FALL FINDINGS: ALIGNMENT:Mild levoconvex curvature of the imaged thoracolumbar spine is similar to the previous study. Mild exaggerated lumbar lordosis. There is approximate 6 mm anterolisthesis of L5 on S1 with approximate 5 mm retrolisthesis of L2 on L3 and L3 on L4. This is fairly similar to the previous study. VERTEBRAE:No compression deformity or acute fracture. DISK SPACES:Advanced degenerative disc disease at L2-L3, L3-L4 and L5-S1. Moderate degenerative disc disease at L1-L2. Mild degenerative disc disease at L4-L5. There is facet arthropathy throughout the lumbar spine which does appear fairly advanced within the mid to lower lumbar spine. SPONDYLOLISTHESIS:Areas of grade 1 spondylolisthesis as discussed above. SACROILIAC JOINTS:Grossly unremarkable. OTHER:Previous cholecystectomy. Diffuse calcifications of the aorta. Orthopedic hardware within the left proximal femur is only partially imaged. CONCLUSION: 1. No acute osseous abnormality. 2. Advanced multilevel degenerative disc and spine disease with multilevel spondylolisthesis as discussed above. The overall degree of degeneration is fairly similar to the previous study. Dictated by: Lester Kinney M.D. On 02/15/2021 at 04:40 PM
--- NOTE | 2021-02-15 17:13 | DIREP ---
PROCEDURE:XRAY HIP MIN 2VW-LT COMPARISON:None. INDICATIONS:LUMBAGO W/LT SCIATICA, FALL FINDINGS: BONES:Sequela of previous trauma with internal fixation about the imaged left proximal femur. There does appear to be previous avulsion of the lesser trochanter. No acute fracture is identified. JOINTS:Minimal degenerative changes of the left hip. SOFT TISSUES:No suspicious abnormality. OTHER:Degenerative changes of the imaged lower lumbar spine. CONCLUSION: 1. No acute osseous abnormality. Sequela of previous trauma to the left proximal femur with associated internal fixation hardware. 2. Minimal degenerative changes of the left hip. Dictated by: Lester Kinney M.D. On 02/15/2021 at 05:09 PM
== END | disposition home or self-care (01) ==
LOC: RAD 10:42
PROVIDERS: ATTEND Nurse Practitioner Adult Health
DX: M43.16 Spondylolisthesis, lumbar region (principal); M47.816 Spondylosis without myelopathy or radiculopathy, lumbar region; M51.37 Other intervertebral disc degeneration, lumbosacral region; E88.9 Metabolic disorder, unspecified; W01.0XXA Fall on same level from slipping, tripping and stumbling without subsequent striking against object, initial encounter; Z90.49 Acquired absence of other specified parts of digestive tract
CPT/HCPCS: 72100; 73502

== ENCOUNTER → 2021-04-12 | Outpatient (CLI) | payer OTHER ==
--- NOTE | 2021-04-12 13:42 | DIREP ---
PROCEDURE:XRAY ACUTE ABD INCL UPRIGHT CHEST COMPARISON:CR, XRAY CHEST SINGLE VW, 12/29/2018, 12:06 PM. [facility], CR, XRAY HIP MIN 2VW-LT, 02/15/2021, 10:[address], CT ABD/PELVIS W/ CONTRAST, 08/23/2020, 01:52 PM. CR, XRAY ABDOMEN 2VW, 05/20/2020, 01:42 PM. INDICATIONS:K59.00 CONSTIPATION, R10.9 ABD PAIN TECHNIQUE:Flat and upright views of the abdomen and a PA view of the chest are provided. FINDINGS: LUNGS/PLEURA:Hyperinflated lung bethea with chronic interstitial changes. No focal consolidation, pleural effusion, or pneumothorax. CARDIAC:Heart size within normal limits. Calcified aortic arch. MEDIASTINUM:No visible mass or adenopathy. BONES:Left femoral fixation hardware with associated degenerative and posttraumatic change noted. Diffuse degenerative change without acute osseus abnormality. BOWEL GAS PATTERN:No small bowel dilatation. Extensive fecal residue seen throughout the colon. FREE AIR:None. CALCIFICATIONS:None significant. OTHER:Cholecystectomy clips project over the right upper quadrant. CONCLUSION: 1. No focal consolidation, pleural effusion, or pneumothorax. 2. Colonic fecal stasis. No small bowel dilatation. Dictated by: Adis Stewart MD on 04/12/2021 at 01:36 PM
== END | disposition home or self-care (01) ==
LOC: RAD 11:41
PROVIDERS: ATTEND Nurse Practitioner Adult Health
DX: I70.0 Atherosclerosis of aorta (principal); K59.00 Constipation, unspecified; R19.5 Other fecal abnormalities; R10.9 Unspecified abdominal pain; M47.815 Spondylosis without myelopathy or radiculopathy, thoracolumbar region; Z90.49 Acquired absence of other specified parts of digestive tract
CPT/HCPCS: 74021

== ENCOUNTER 2021-10-10 12:02 | Emergency (ER) | payer MEDICARE ==
[~2021-10-10] VITALS: Ht 154.9 cm; Wt 63.5 kg
[2021-10-10 14:00] VITALS: BP 141/72
--- NOTE | 2021-10-10 15:26 | ER.PDOC ---
General Chief Complaint: Requesting Medical Care Stated Complaint: COUGH/CONGESTION Time seen by MD: 15:22 Source: patient Exam Limitations: no limitations History of Present Illness Initial Comments Cough and congestion for 1 week. No chest pain or shortness of breath. Patient was exposed to her child who has COVID-19. Timing/Duration: gradual Severity: moderate Associated Symptoms: runny nose, cough Allergies: Coded Allergies: Penicillins (Verified Allergy, Unknown, RED BUMPS, 04/30/17) Sulfa (Sulfonamide Antibiotics) (Verified Allergy, Unknown, RED BUMPS, 04/30/17) acetaminophen (Verified Allergy, Unknown, 01/09/18) cephradine (Verified Allergy, Unknown, 04/30/17) fentanyl (Verified Allergy, Unknown, 04/30/17) gabapentin (Verified Allergy, Unknown, "I BREAK OUT LIKE I HAVE BLOOD UNDER THE SKIN", 04/30/17) hydrocodone (Verified Allergy, Unknown, 01/09/18) iron (Verified Allergy, Unknown, 04/30/17) lansoprazole (Verified Allergy, Unknown, 04/30/17) morphine (Verified Allergy, Unknown, 04/30/17) oxycodone (Verified Allergy, Unknown, 04/30/17) oxytetracycline (Verified Allergy, Unknown, Swelling, 04/30/17) pantoprazole (Verified Allergy, Unknown, 04/30/17) propoxyphene (Verified Allergy, Unknown, 01/09/18) pseudoephedrine (Verified Allergy, Unknown, RED BUMPS, 04/30/17) raloxifene (Verified Allergy, Unknown, 04/30/17) tramadol (Verified Allergy, Unknown, 04/30/17) Home Meds Active Scripts Metronidazole (FLAGYL) 500 Mg Tablet, 500 MG PO TID for 5 Days, #15 TAB Prov:LEILA DOUGLAS MD 08/25/20 Reported Medications Esomeprazole Magnesium (NEXIUM) 40 Mg Capsule.dr, 1 CAP PO DAILY, #30 CAP 5 Refills 04/30/17 Butalbital/Aspirin/Caffeine ([id number] CAP) 1 Each Capsule, 1 EACH PO BID PRN for HEADACHE, CAPSULE 04/30/17 Dicyclomine Hcl (DICYCLOMINE HCL) 10 Mg Capsule, 1 CAP PO TID, #90 CAP 11 Refills 09/27/14 Tramadol Hcl (TRAMADOL HCL) 50 Mg Tablet, 50 MG PO PRN for PAIN, TABLET 09/27/14 Nystatin (NYSTATIN) 100,000 Unit/1 Ml Oral.susp, 5 MILLILITER PO QID PRN for RASH, #200 MILLILITER 09/27/14 Verapamil Hcl (VERAPAMIL ER) 240 Mg Cap24h.pel, 1 CAP PO DAILY, #30 CAP 5 Refills 09/27/14 Metformin Hcl (METFORMIN HCL) 500 Mg Tablet, 750 MG PO DAILY, #60 TAB 3 Refills 09/27/14 Levothyroxine Sodium (LEVOTHYROXINE SODIUM) 50 Mcg Tablet, 1 TAB PO DAILY, #30 TAB 5 Refills 09/27/14 Constitutional: no symptoms reported EENTM: see HPI Respiratory: see HPI Cardiovascular: no symptoms reported Gastrointestinal: no symptoms reported All Other Systems: Reviewed and Negative Past Medical History Medical History: diabetes Surgical History: appendectomy, cholecystectomy, hysterectomy Family History Significant Family History: no pertinent family hx Social History Smoking: non-smoker Alcohol Use: none Drug Use: none Results/Orders Results/Orders Orders - MALINDA JENSEN MD Covid19 Antigen Alba Kwon (10/10/21 14:30) Laboratory Tests Test 10/10/21 00:00 SARS-CoV-2 Antigen (Rapid) POSITIVE (NEGATIVE) *A Progress Progress White counseled about the Bam infusion and she agreed to have it. Order form signed. ER DEPART Departure Time of Disposition: 15:24 Disposition: 01 HOME / SELF CARE / HOMELESS Impression: Primary Impression: COVID-19 virus infection Condition: Stable Referrals: DREW SCHAFER MD (PCP) PRIMARY CARE PROVIDER Additional Instructions: Z pack Prednisone Vitamin C, D and zinc [id number] as directed Self quarantine at home for 14 days Follow-up with your PCP in 1 week Return to ED if worsening symptoms or concerns Duration or Time Spent with Pa: 10 min MALINDA JENSEN MD Oct 10, 2021 15:26
[2021-10-10 15:41] VITALS: BP 141/75
== END 2021-10-10 15:40 | disposition home or self-care (01) ==
LOC: ER 12:02
DX: U07.1 COVID-19 (principal); E11.9 Type 2 diabetes mellitus without complications; Z79.82 Long term (current) use of aspirin; Z79.84 Long term (current) use of oral hypoglycemic drugs; Z88.0 Allergy status to penicillin; Z88.1 Allergy status to other antibiotic agents; Z88.2 Allergy status to sulfonamides; Z88.5 Allergy status to narcotic agent; Z88.8 Allergy status to other drugs, medicaments and biological substances; Z90.49 Acquired absence of other specified parts of digestive tract; Z90.710 Acquired absence of both cervix and uterus
CPT/HCPCS: 87426; 99283

== ENCOUNTER → 2021-10-11 | Outpatient (CLI) | payer MEDICARE ==
[~2021-10-11] MED LIST changes: +BAMLANIVIMAB (EUA) 700 MG, ETESEVIMAB (EUA) 1,400 MG in NS 50ML 50 ML IV ONE
[2021-10-11 09:50] VITALS: BP 144/73
[2021-10-11 10:38] VITALS: BP 128/68
[2021-10-11 11:43] VITALS: BP 132/70
== END | disposition home or self-care (01) ==
LOC: OPTX 09:48
PROVIDERS: ATTEND Family Medicine
DX: U07.1 COVID-19 (principal); E11.9 Type 2 diabetes mellitus without complications; Z79.82 Long term (current) use of aspirin; Z79.84 Long term (current) use of oral hypoglycemic drugs
CPT/HCPCS: M0245; Q0245; Q0239

== ENCOUNTER 2021-11-06 11:21 | Emergency (ER) | payer MEDICARE ==
[~2021-11-06] VITALS: Ht 157.5 cm; Wt 90.7 kg
[~2021-11-06 11:21] MED LIST changes: -BAMLANIVIMAB (EUA) 700 MG, ETESEVIMAB (EUA) 1,400 MG in NS 50ML 50 ML IV ONE
--- NOTE | 2021-11-06 11:28 | NUR ---
ARRIVAL PRESENTED TO ED RM#2 VIA EMS WITH C/O GENERALIZED WEAKNESS AND COVID POS >1-[address] W[address] AGO[address] VS OB[address] MAURICE NOTIFIED OF PATIENT ARRIVAL.
--- NOTE | 2021-11-06 11:34 | ER.PDOC ---
General Chief Complaint: Requesting Medical Care Stated Complaint: N/V WEAKNESS, COVID + TRAVEL OUT OF US: No Time seen by MD: 11:33 Source: patient, EMS Exam Limitations: no limitations History of Present Illness Initial Comments 89-year-old female presenting with weakness that progressed since her diagnosis of COVID a week ago. Patient says she was diagnosed with COVID-19 on October 31. Since then she has had increased weakness, fatigue, no shortness of breath, and just not feeling well per patient. Patient continues to give vague symptoms when asked specifically any chest pain, diarrhea and she only endorsed abdominal pain with some nausea. Denies any focal weakness. No slurred speech. But has endorsed some anorexia Allergies: Coded Allergies: Penicillins (Verified Allergy, Unknown, RED BUMPS, 04/30/17) Sulfa (Sulfonamide Antibiotics) (Verified Allergy, Unknown, RED BUMPS, 04/30/17) acetaminophen (Verified Allergy, Unknown, 01/09/18) cephradine (Verified Allergy, Unknown, 04/30/17) fentanyl (Verified Allergy, Unknown, 04/30/17) gabapentin (Verified Allergy, Unknown, "I BREAK OUT LIKE I HAVE BLOOD UNDER THE SKIN", 04/30/17) hydrocodone (Verified Allergy, Unknown, 01/09/18) iron (Verified Allergy, Unknown, 04/30/17) lansoprazole (Verified Allergy, Unknown, 04/30/17) morphine (Verified Allergy, Unknown, 04/30/17) oxycodone (Verified Allergy, Unknown, 04/30/17) oxytetracycline (Verified Allergy, Unknown, Swelling, 04/30/17) pantoprazole (Verified Allergy, Unknown, 04/30/17) propoxyphene (Verified Allergy, Unknown, 01/09/18) pseudoephedrine (Verified Allergy, Unknown, RED BUMPS, 04/30/17) raloxifene (Verified Allergy, Unknown, 04/30/17) tramadol (Verified Allergy, Unknown, 04/30/17) Home Meds Active Scripts Metronidazole (FLAGYL) 500 Mg Tablet, 500 MG PO TID for 5 Days, #15 TAB Prov:LEILA DOUGLAS MD 08/25/20 Reported Medications Esomeprazole Magnesium (NEXIUM) 40 Mg Capsule.dr, 1 CAP PO DAILY, #30 CAP 5 Refills 04/30/17 Butalbital/Aspirin/Caffeine (PHGDLLZTGS-BQX-PXEMBFZT CAP) 1 Each Capsule, 1 EACH PO BID PRN for HEADACHE, CAPSULE 04/30/17 Dicyclomine Hcl (DICYCLOMINE HCL) 10 Mg Capsule, 1 CAP PO TID, #90 CAP 11 Refills 09/27/14 Tramadol Hcl (TRAMADOL HCL) 50 Mg Tablet, 50 MG PO PRN for PAIN, TABLET 09/27/14 Nystatin (NYSTATIN) 100,000 Unit/1 Ml Oral.susp, 5 MILLILITER PO QID PRN for RASH, #200 MILLILITER 09/27/14 Verapamil Hcl (VERAPAMIL ER) 240 Mg Cap24h.pel, 1 CAP PO DAILY, #30 CAP 5 Refills 09/27/14 Metformin Hcl (METFORMIN HCL) 500 Mg Tablet, 750 MG PO DAILY, #60 TAB 3 Refills 09/27/14 Levothyroxine Sodium (LEVOTHYROXINE SODIUM) 50 Mcg Tablet, 1 TAB PO DAILY, #30 TAB 5 Refills 09/27/14 Past Medical History Medical History: hypertension Surgical History: appendectomy, hysterectomy Social History Drug Use: none Review of Systems All Other Systems: Reviewed and Negative (limited secondary to pt's clinical status and weakness ) Physical Exam General Appearance: Severe Distress, Other (ill appearing ) EENT: other (Dry MM, mild erythema to oral pharynx ) Respiratory: respiratory distress, decreased breath sounds, accessory muscle use, retractions, other (agonal breathing) CVS: chest compressions Gastrointestinal: Absent bowel sounds Extremities: Normal Range of Motion, Slow Capillary Refill Neurologic/Psychiatric: Disoriented x 3, Other (generalized weakness ) Skin: Mottled, Pallor Intubation Intubation : Time of Intubation: 12:10 Intubation Method: orotracheal Blade: glidescope Tube Size (cm): 7.5 Preoxygenated: Yes Breath Sounds after Intubation: equal Intubation Complications: no complications Post Intubation Xray: Yes Results/Orders Results/Orders Orders - EJESIEME,ASHISH C DO Cbc With Auto Diff (11/06/21 11:30) Comprehensive Metabolic Panel (11/06/21 11:30) Creatine Kinase (11/06/21 11:30) Creatine Kinase Mb (11/06/21 11:30) PT (11/06/21 11:30) Partial Thromboplastin Time. (11/06/21 11:30) Urinalysis (11/06/21 11:30) Ekg-Routine (11/06/21 11:30) Saline Lock (11/06/21 11:30) Troponin I High Sensitivity (11/06/21 11:30) Probnp B-Type [employer] Delivery Driver (11/06/21 11:30) D-Dimer (11/06/21 11:30) Blood Culture (11/06/21 11:30) Procalcitonin (11/06/21 11:30) Lactic Acid(Ml) (11/06/21 11:30) Place Connelly Catheter (11/06/21 11:30) Urine Culture (11/06/21 11:40) 0.9 % Sodium Chloride (Ns 250ml) (11/06/21 12:13) Norepinephrine Bitartrate (Levophed) (11/06/21 12:13) Covid19 Antigen Alba Cher (11/06/21 13:02) Laboratory Tests Test 11/06/21 11:40 11/06/21 12:15 Urine Collection Type CATH Urine Color YELLOW Urine Appearance CLOUDY Urine Bilirubin NEGATIVE (NEGATIVE) Urine Ketones NEGATIVE (NEGATIVE) Urine Specific [place] >=1.030 (1.005-1.030) Urine pH 5.0 (4.5-8.0) Urine Protein 1+ (NEGATIVE) H Urine Urobilinogen 0.2 E.U./dL (0.2) Urine Nitrate NEGATIVE (NEGATIVE) Urine Leukocyte Esterase NEGATIVE (NEGATIVE) Urine Glucose (Auto)(UA) NEGATIVE (NEGATIVE) Urine Blood NEGATIVE (NEGATIVE) Urine RBC 0-2 RBC/HPF (NONE SEEN) Urine WBC 2-5 WBC/HPF (0-2) Urine Squamous Epithelial Cells FEW (<=FEW) Urine Bacteria FEW (NONE SEEN) H Urine Yeast MANY (NONE SEEN) Sodium Level 154 mmol/L (132-145) #H Potassium Level 5.7 mmol/L (3.6-5.2) H Chloride Level 110.0 mmol/L (96-109) H Carbon Dioxide Level 31.6 mmol/L (20.0-32) Anion Gap 18.1 Blood Urea Nitrogen 14 mg/dL (7-18) Creatinine 1.42 mg/dL (0.59-1.40) H Estimated GFR () 42.2 (>/=60) Est GFR (CKD-EPI)(Non-Afr Irish) 34.9 (>/=60) BUN/Creatinine Ratio 9.0 Glucose Level 294 mg/dL (70-110) H Lactic Acid Level 14.1 mmol/L (0.5-1.9) *H Calcium Level 7.9 mg/dL (8.4-10.5) L Total Bilirubin 0.4 mg/dL (0.2-1.0) Aspartate Amino Transferase (AST) 160 U/L (0-35) H Alanine Aminotransferase (ALT) 109 U/L (12-78) H Alkaline Phosphatase 53 U/L (50-136) Total Creatine Kinase 89 U/L (26-192) Creatine Kinase MB 3.0 ng/mL (0.5-3.6) Troponin I High Sensitivity 756 ng/L (0-50) *H Pro-B-Type Natriuretic Peptide 1137 pg/mL (0-450) H Total Protein 5.2 g/dL (6.4-8.2) L Albumin 2.2 g/dL (3.4-5.0) L Globulin 3.0 Albumin/Globulin Ratio 0.733 SARS-CoV-2 Antigen (Rapid) NEGATIVE (NEGATIVE) Progress Progress 11:57 - CPR initiated. Patient began to bradycardia down push dose epinephrine given with some increase in the heart rate but she immediately continued to bradycardia down. CPR initiated once pulses were lost. Multiple ROSC returned, intubated, please see patient nursing documentation in regards all medications given during CPR. 1236: TOD ER DEPART Departure Time of Disposition: 12:36 Disposition: 20 Impression: Primary Impression: Cardiac arrest Condition: Referrals: DREW SCHAFER MD (PCP) PRIMARY CARE PROVIDER Duration or Time Spent with Pa: 65 minutes Critical Care Note Total Time (mins): 35 Comments Given the critical condition in which the patient arrived, the patient was immediately assessed by myself and the nurse, and cardiac monitoring initiated due to the potential for rapid decompensation of the patient's clinical condition. During the course, I spent a considerable amount of time at the bedside performing serial re-evaluations of the patient's hemodynamic and clinical status because of the recognized potential threat to life or limb in this condition.Any ancillary information available including car rider records were reviewed. Sequential vital signs were obtained. Critical Care time of 35 minutes was performed exclusive of billable procedures ASHISH MAURICE DO Nov 06, 2021 11:34
--- NOTE | 2021-11-06 11:40 | NUR ---
GUADALUPE 18F GUADALUPE SUCCESSFUL X1 ATTEMPT USING ASEPTIC TECHNIQUE, URINE SAMPLE OBTAINED AND SENT TO LAB FOR PROCESSING. TOLERATED WELL.
--- NOTE | 2021-11-06 11:45 | NUR ---
RT RT PAGED, PATIENT RR38, LABORED. RT IN ROUTE.
--- NOTE | 2021-11-06 11:57 | NUR ---
CALLED [facility] ER FOR INTUBATION ASSIST FOLLOWED BY CODE /CPR @ 0702 TILL 8250
--- NOTE | 2021-11-06 11:57 | NUR ---
CODE 99 1157 SINUS CHARY WITH INCREASED WORK OF BREATHING, DR. MAURICE AT BEDSIDE. PATIENT UNABLE TO STATE NAME/ TO ASSESS CODE STATUS. PREPARING TO INTUBATE PATIENT. CPR INITIATED AT THIS TIME PER DR. MAURICE. EPI 1MG ADMINISTERED VIA IV ATROPINE 1MG ADMINISTERED VIA IV 1201 PULSE CHECK, NO PULSE, PEA, CPR, EPI 20MCG ADMINISTERED 1202 CPR IN PROGRESS 1204 PULSE CHECK, PULSE PRESENT, ROSC 1205 EPI 1MG ADMINISTERED VIA IV 1206 EPI 20MCG ADMINISTERED & 3 AMPS BICARB ADMINISTERED 120[address] MAURICE CONFIRMED WITH ASCULTATION AND ETCO2 BY COLOR CHANGE 1208 VFIB, CPR INITIATED 1210 PULSE CHECK, PULSE PRESENT, ROSC 1218 RT CHANGED BVM TO VENTILATOR 1219 WEAK PULSE PRESENT, LEVOPHED 5MCG/MIN INITIATED VIA IV ON PUMP 1220 PEA, CPR INITIATED 1222 PULSE CHECK, WEAK PULSE PRESENT, ROSC 1223 PEA, CPR INITIATED 1224 CPR IN PROGRESS, CALIUM CHLORIDE 1000MG IV ADMINISTERED 1226 PULSE CHECK, ASYSTOLE, CPR INITIATED 1228 PULSE CHECK, ASYSTOLE, CPR INITIATED 1230 PULSE CHECK, ASYSTOLE, CPR INITIATED 1232 PULSE CHECK, PEA, CPR INITIATED, EPI 1 MG IV ADMINISTERED 1234 PULSE CHECK, PEA, CPR INITIATED 1236 PULSE CHECK, ASYSTOLE, TIME OF CALLED BY DR. MAURICE SEE CODE RECORD IN MEDICAL RECORD 1236 TIME OF 1200 NEXT OF KIN, RONNA SHELL NOTIFIED TO COME TO HOSPITAL 1240 NEXT OF KIN, RONNA SHELL NOTIFIED PATIENT BY DR. MAURICE 1256 LIFE GIFT NOTIFIED. NINA ORNELAS. CASE NO. [id number], NOT A CANDIDATE 1258 ADMITTING NOTIFIED OF , MIRLANDE. HOUSE SUP NOTIFIED OF , JIM. 1300 REQUEST OF AUTOPSY DECLINED BY NEXT OF KIN 1305 JUDGE CHAO NOTIFIED OF , ALL QUESTIONS ANSWERED. NOT AN SENIOR DESIGN ENGINEERING SPECIALIST CASE. SPOKE WITH NEXT OF KIN, RONNA SHELL. 1343 MONICA DEFEVER WITH [facility] PRESENT TO [facility] SEED CULLER BODY AT THIS TIME.
[2021-11-06 12:07] LABS: BILIRUBIN,URINE NEGATIVE (NEGATIVE); UROBILINOGEN,URINE 0.2 E.U./dL (0.2)
[2021-11-06 12:13] LABS: YEAST,URINE MANY (NONE SEEN)
[2021-11-06] MEDS ORDERED: LEVOPHED ONE (12:13)
[2021-11-06] MEDS ORDERED: NS 250ML 250 ML ONE (12:13)
--- NOTE | 2021-11-06 12:39 | PCM.EKG ---
[facility] Test Date: 2021-11-06 Test Time: 11:51:58 Pat Name: ELIAS PEÑALOZA Department: Room: Gender: F Face Painter: QUINN : [id number] Requested By: ASHISH MAURICE Order Number: [id number] Reading MD: Measurements Intervals [place] Rate: 43 P: 43 RI: 119 QRS: 65 QRSD: 134 T: -30 QT: 446 QTc: 378 Interpretive Statements Sinus rhythm Supraventricular bigeminy Borderline short RI interval Right bundle branch block Repol abnrm, global ischemia, diffuse leads Baseline wander in lead(s) V4 Compared to ECG 12/30/2018 07:08:47 Atrial premature complex(es) now present Right bundle-branch block now present Early repolarization now present Possible ischemia now present Please click the below link to view image of tracing.
[2021-11-06 12:47] LABS: CARBON DIOXIDE 31.6 mmol/L (20.0-32)
[2021-11-06] MEDS ORDERED: ATROPINE SULFATE ONE (14:17)
[2021-11-06] MEDS ORDERED: EPINEPHRINE ONE (14:17)
[2021-11-06] MEDS ORDERED: SODIUM BICARBONATE IV ONE (14:17)
[2021-11-06] MEDS ORDERED: MAGNESIUM SULFATE IV ONE (14:22)
[2021-11-06 14:55] VITALS: BP 146/109
== END 2021-11-06 13:43 ==
LOC: ER 11:21 → EDUNIT# 11:21 → EDBD 11:21 → ER 13:43
DX: I46.9 Cardiac arrest, cause unspecified (principal); I10 Essential (primary) hypertension; Z20.822 Contact with and (suspected) exposure to COVID-19; Z79.82 Long term (current) use of aspirin; Z79.84 Long term (current) use of oral hypoglycemic drugs; Z88.0 Allergy status to penicillin; Z88.1 Allergy status to other antibiotic agents; Z88.2 Allergy status to sulfonamides; Z88.5 Allergy status to narcotic agent; Z88.8 Allergy status to other drugs, medicaments and biological substances; Z90.49 Acquired absence of other specified parts of digestive tract; Z90.710 Acquired absence of both cervix and uterus
CPT/HCPCS: 31500; 36415; 80053; 81001; 82550; 82553; 83605; 83880; 84484; 87040; 87086; 87426; 92950; 93005; 99291; J0171; J0461; J3475; J3490; J7050